=== PATIENT | female | born 1970 | race African-American/Black ===

== ENCOUNTER 2016-10-16 07:58 | Inpatient (IN) ==
[2016-10-16] MEDS ORDERED: ONDANSETRON 4 MG/2 ML VIAL IV STA (08:22)
[2016-10-16] MEDS ORDERED: HYDROmorphone 2 MG/1 ML VIAL IV STA ×2 (08:22→10:39)
[2016-10-16] MEDS ORDERED: HYDROmorphone 2 MG/1 ML VIAL ONE ×2 (08:23→10:39)
[2016-10-16] MEDS ORDERED: ONDANSETRON 4 MG/2 ML VIAL ONE (08:23)
[2016-10-16] MEDS: ALBUTEROL 2.5 MG/3 ML NEB RESP TX SCH ×3 (08:24→08:44)
--- NOTE | 2016-10-16 08:32 | Emergency Department Note ---
Ayana Rene Hilary, am scribing for, and in the presence of, Jose Luis Cabrera MD 08: 24. Deborah Rene James D, MD, personally performed the services described in this documentation, ascribed by Betty Piña in my presence, and it is both accurate and complete [id number] . Arrival - Arrival Chief Complaint: Shortness of Breath ED Nursing Triage Note: Brought in by EMS c/o SOB-onset "about 2 weeks ago", worse today. Also reports increasing abdominal pain, patient has hx of colon ca but has not had chemo in over a year. EMS reports patient initial sats were 70% on RA-improved to 100% on NRB Mode of Arrival: Stretcher Limitations: No Limitations Source: Patient, RN Notes Reviewed Time Seen by Provider: 10/16/16 08:12 - History of Present Illness HPI Narrative: Pt is a 46 y/o female brought into the ED via EMS with c/o intermittent SOB which onset 2 weeks ago. Pt states that she went to Dr. Huerta 4 days ago to get a biopsy of her hip but they were unable to do it due to her O2 levels. She confirms cough with brown spit up, stomach pain, pain in her right leg, nausea and SOB but denies vomiting. Pt has a PMHx of HTN, Peripheral neuropathy, NIDDM , fluid build up of right lung, colon CA, and DVT RUE. She is also a smoker. No other complaints or problems stated in the ED. Onset (ago): week(s) Consistency: intermittent Severity: moderate Severity scale (1-10): 3 Date of Last Menstrual Period: hysterectomy Allergies/Adverse Reactions: Allergies Allergy/AdvReac Type Severity Reaction Status Date / Time Erythromycin Base Allergy Joint Pain Verified 10/13/16 08:25 Home Medications: Home Medications Medication Instructions Recorded Confirmed Type metFORMIN [Glucophage] 1,000 mg PO BID W/MEALS 04/04/15 10/13/16 History amLODIPine [Norvasc] 10 mg PO DAILY #30 tablet 11/19/15 10/13/16 Rx Ondansetron [Ondansetron Odt] 8 mg PO Q4H PRN #10 tab.rapdis 09/24/16 10/13/16 Rx Morphine Sulfate [Morphine Sulfate 30 mg PO BID 10/09/16 10/13/16 History ER] Oxycodone HCl/Acetaminophen 1 each PO Q4-6H PRN 10/09/16 10/13/16 History [Percocet 7.5-325 mg Tablet] Review of System - Review of System 12 point system: reviewed and no additional remarkable complaints except as stated - Review of System Constitutional: Absent: fever Respiratory: Present: cough, respiratory distress (SOB) Gastrointestinal: Present: abdominal pain, nausea. Absent: vomiting Musculoskeletal: Present: leg pain (right) Medical,Surgical,& Family Hx - Medical History Cardio: History of: Hypertension Psychological: No history of: Psychiatric Problems Neurology: History of: Migraine, Peripheral Neuropathy No history of: Seizures HEENT: History of: Dental Problems (DENTURES) Endocrine: History of: Diabetes Mellitus (NIDDM) Respiratory: History of: Respiratory Problems (FLUID BUILD UP R LUNG SOB; FLU VAC-YES; PNEU VAC- NO. DR URRUTIA.) Genitourinary: History of: Kidney Stones, Recurring Urinary Tract Infections No history of: Problems Gastrointestinal: History of: Bowel Obstruction, Gastrointestinal Cancer (colon ca with colostomy), GI Problems (Colon cancer, colostomy placement) Musculoskeletal: History of: Back/Neck Problems (BACK PAIN; DR SEE DALAL PAIN ; BACK INJ LAST 07/2016.), Musculoskeletal Problems (Sacral Lesion) No history of: Musculoskeletal Cancer (10/13/16 Sched for Bx Sacarl Lesion RAD ) Hematology: History of: Clotting Problems (DVT RUE 11.25.14) Reproductive: History of: Ovarian Cysts Other: History of: Cancer (COLON CA 2013 Chemo;09/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)) - Surgical History Cardiac Surgeries: Sugical HX of: Vascular Access Devices (Mediport Lt) Patient Denies: Cardiac Surgery Abdominal Surgeries: Surgical HX of: Abdominal Surgery, Appendectomy, Colonoscopy Reproductive Surgeries: Surgical HX of;: Genitourinary Surgery (Lt Ureteral Stent 08/2016), Hysterectomy, Tubal Ligation - Family History Family History: Reports;: Family Diabetes, Family Heart Disease, Family Hypertension, Family Stroke - Social History Smoking Status: Current every day smoker Frequency of Alcohol Use: None Type of Drug Use: None Exam Physical Examination: GENERAL: This is a well-nourished, well-developed in no apparent distress. VITAL SIGNS: Temperature: 97.9 Pulse: 102 Respiratory: 24 Blood Pressure: 206/88 O2 Sat: 80 HEENT: Head is normocephalic and atraumatic. Pupils are equally round and reactive to light. Extraocular movement are intact. Oropharynx is benign with moist mucous membranes. NECK: Neck is soft and supple without tenderness. There are no masses. There is no lymphadenopathy. LUNGS: Decreased breath sounds in right base. Chest rises symmetrically. There is no chest wall tenderness. CV: Heart is regular rate and rhythm without murmurs, rubs, or gallops. ABDOMEN: Abdomen is soft, non-tender to palpation. There are no abnormal masses palpated. There is no organomegaly. Bowel sounds are present and active. SKIN: Skin is warm and dry. No rash. EXTREMITIES: Patient has full range of motion without tenderness. There is no pedal edema. NEUROLOGIC: Awake, alert, and oriented x4. Cranial nerves II through XII are grossly intact. There are no motorsensory deficits. PSYCHIATRIC: Normal affect. Normal mood. Vital Signs: Vital Signs Temperature 97.9 F 10/16/16 08:05 Pulse Rate 88 10/16/16 09:15 Respiratory Rate 16 10/16/16 09:15 Blood Pressure 186/97 10/16/16 09:15 O2 Sat by Pulse Oximetry 100 10/16/16 09:15 Course - Consultations Consultation #1: Discussed with hospitalist. Patient will be admitted to their service. Time: 09:48 Results - Labs CBC & BMP: 10/16/16 08:17 10/16/16 08:17 Lab Results: I have reviewed the patients labs Labs: Laboratory Tests 10/16/16 08:17 WBC 10.1 RBC 4.31 Hgb 12.5 Hct 37.9 RDW 19.7 H MPV 8.6 L Neut % (Auto) 86.2 H Lymph % (Auto) 8.1 L Neut # (Auto) 8.7 H Lymph # (Auto) 0.8 L Laboratory Tests 10/16/16 10/16/16 10/16/16 08:17 08:17 08:17 INR 1.1 PT Patient/Control Mix 11.4 Circ Anticoag PTT 34.8 Sodium 138 Potassium 4.4 Chloride 109 H Carbon Dioxide 23 BUN 23 H Creatinine 2.40 H Glucose 178 H Alkaline Phosphatase 214 H B-Natriuretic Peptide 609 H Albumin 2.5 L Globulin 4.3 H Albumin/Globulin Ratio 0.5 L - EKG EKG results: interpreted by ERMD - Impressions EKG: Normal sinus rhythm with a short OH interval, rate 99, nonspecific ST-T wave changes, normal axis. - Diagnostic Findings Procedure: Chest x-ray: image reviewed by me, report reviewed by me (Right- sided pneumonia. No significant change in bilateral pleural andparenchymal opacities.) Disposition Clinical Impression: Colon cancer, Dyspnea, History of DVT (deep vein thrombosis), Acute renal failure Case discussed with: patient Disposition: Still a Patient
[2016-10-16] MEDS ORDERED: LEVOFLOXACIN INJ 500 MG in PREMIX 1 EACH IV STA (08:34)
--- NOTE | 2016-10-16 08:34 | XRay Report ---
History is dyspnea Comparison 10/13/2016 The heart is mildly enlarged. There remains moderate diffuse bilateral reticulonodular and hazy pulmonary opacities and underlying effusions which could be infiltrates or edema. The mildly more confluent air bronchograms in both lung bases remain which could be infiltrate or atelectasis. Skinfold overlies the lateral left chest. Impression: No significant change in bilateral pleural and parenchymal opacities described above PROCEDURE INTERPRETED AT [facility] DEPARTMENT OF RADIOLOGY Final Report Signed by: Dr. Mayra Robledo
[2016-10-16 08:37] LABS: Basophils % 0.4 % (0.0-0.8); Eosinophils # 0.1 10*3/uL (0.0-0.87); Eosinophils % 0.7 % (0.00-10.9); Hematocrit 37.9 VOL% (35.7-47.0); Hemoglobin 12.5 GM/DL (12.0-16.0); Immature Granulocytes % 0.6 %; Immature Granulocytes Absolute 0.06 #; Lymphocytes # 0.8 10*3/uL (1.4-4.0); Lymphocytes % 8.1 % (21.3-54.2); Mean Corpuscular Hemoglobin 29 PG (27-34); Mean Corpuscular Volume 87.9 FL (87-102); Mean Platelet Volume 8.6 FL (9.6-12.0); Monocytes # 0.4 10*3/uL (0.11-0.8); NRBC # 0.06 10*3/uL; Neutrophils # 8.7 10*3/uL (1.4-7.4); Neutrophils % 86.2 % (38.7-73.9); Platelet Count 349 T/CUMM (130-400); Red Blood Count 4.31 MC/CUMM (3.8-5.5); Red Cell Distribution Width 19.7 % (9.3-17.3); White Blood Count 10.1 T/CUMM (4-12)
--- NOTE | 2016-10-16 08:39 | EKG Report ---
Stationary ECG Study [facility] ER Test Date: 10/16/2016 8:08:54 AM Pat Name: LUAD NORRIS Department: Room: Gender: F Attendant Honor Bar: : [id number] Requested by: Jose Luis Howard Order Number: [id number] Reading MD: TRENA JOY Intervals [place] Rate: 99 P: 54 PA: 96 QRS: 93 QRSD: 93 T: -14 QT: 354 QTc: 410 Interpretive Statements SINUS RHYTHM WITH SHORT PA INTERVAL RIGHT AXIS DEVIATION NONSPECIFIC T-WAVE ABNORMALITY Electronically Signed On 10-16-16 16:34:22 CDT by TRENA JOY [email or web address]
[2016-10-16 09:02] LABS: INR 1.1; PT Patient Result 11.4 SECS; Partial Thromboplastin Time 34.8 SECS (0-40)
[2016-10-16 09:12] LABS: Albumin 2.5 G/DL (3.4-5.0); Bilirubin,Total 0.4 MG/DL (0.2-1.0); Calcium 9.2 MG/DL (8.5-10.1); Osmolality,Calculated 282.7 MOS/KG (273-304); Potassium 4.4 MMOL/L (3.5-5.1); Total Protein 6.8 G/DL (6.4-8.3)
[2016-10-16] MEDS ORDERED: LEVOFLOXACIN INJ 100 ML IV ONE (09:14)
[2016-10-16] MEDS ORDERED: guaiFENesin/DM ER 600-30 MG TABLET PO PRN (10:17)
[2016-10-16] MEDS ORDERED: ONDANSETRON 4 MG/2 ML VIAL IV PRN (10:17)
[2016-10-16] MEDS ORDERED: POTASSIUM CHLORIDE RIDER 10 MEQ in PREMIX 1 EACH IV PRN (10:19)
[2016-10-16] MEDS ORDERED: MAGNESIUM SULF RIDER 2 GM in PREMIX 1 EACH IV PRN (10:19)
[2016-10-16] MEDS ORDERED: MAGNESIUM SULF RIDER 4 GM in PREMIX 1 EACH IV PRN (10:19)
[2016-10-16] MEDS ORDERED: ALBUTEROL 2.5 MG/3 ML NEB RESP TX PRN (10:20)
[2016-10-16] MEDS ORDERED: GLUCAGON 1 MG VIAL IM PRN (10:22)
[2016-10-16] MEDS ORDERED: DEXTROSE 50% 25 GM/50 ML SYRINGE IV PRN (10:22)
--- NOTE | 2016-10-16 10:42 | Hospitalist History & Physical ---
<Amira Torres - Last Filed: 10/16/16 10:40> Assessment and Plan (1) Acute renal failure Status: Acute Assessment and plan: BUN/Creatinine noted at 23/2.40. Upon review of the medical record on 09/05; BUN and Creatinine was noted at 19/1.10. Due the past history of urology abnormalities; we will obtain CT abdomen and pelvis to rule out obstruction. We will monitor intake and output closely. Recheck CMP in a.m. Current Visit: Yes (2) Dyspnea Status: Acute Assessment and plan: The patient was hypoxic at the time of EMS encounter. Per EMS report, the patient was noted to be hypoxic with O2 saturations recorded at 70%. The patient was placed on a nonrebreather mask and her sats improved and were noted at 100% at the time of ED encounter. Chest x-ray suggested right middle lobe pneumonia. However I feel that there is a component of failure present also. The patient's BNP was noted at 811. We will gently rehydrate and recheck chest x-ray in a.m. Current Visit: Yes Qualifiers: Dyspnea type: unspecified Qualified Code(s): R06.00 - Dyspnea, unspecified (3) Colon cancer Problem details: possible recurrence with tumor markers going up Status: Acute Assessment and plan: The patient is managed in the outpatient setting for her colorectal cancer by Dr. Oconnor; we will consult him to assist. Current Visit: No (4) History of DVT (deep vein thrombosis) Status: Acute Assessment and plan: Patient has a past history of right lower leg DVT. At the time of ED presentation, the patient complained of bilateral lower extremity pain. Upon review of the patient's home medications, no current anticoagulation agents are in place. We will order bilateral venous Doppler studies to evaluate for the presence of deep vein thrombosis. Current Visit: Yes History of Present Illness Chief complaint: Shortness of breath History of present illness: This is a chronically ill 46-year-old female that presented to the ED at [facility] this morning via EMS for the evaluation of shortness of breath. The patient has a medical history significant for hypertension, peripheral neuropathy, deep vein thrombosis to the right upper extremity, rci-iqlligp-obkaqwzvu diabetes, pleural effusion, nicotine addiction , colorectal cancer. The patient has a surgical history significant for Mediport placement to the left chest wall, appendectomy, colonoscopy, cystoscopy with left ureteral stent placement, hysterectomy, and tubal ligation. Patient has a family history significant for diabetes, cardiovascular disease, hypertension, and cerebrovascular accident. The patient denies illicit drug use an alcohol consumption. The patient reported the onset of symptoms 2 weeks prior to presentation. The patient reported that she is followed in the outpatient setting by Dr. Oconnor, oncologist who manages her colorectal cancer. She reported that she was scheduled to have a biopsy of her hip however, due to her low oxygen saturations she was unable to complete it. She reported that she has had a gradual onset of a cough that was initially nonproductive then progressed to productive with thick brown tinged sputum. In addition, the patient reported abdominal pain and right lower lobe pain. She reported nausea and shortness of breath however denied vomiting. Her symptoms became severe prompting her to notify EMS. The patient was subsequently transported to [facility] for further evaluation. The patient was assessed at the time of ED presentation. Per EMS report, at the time of initial encounter the patient was noted to be grossly hypoxic with O2 saturations recorded at 70%. The patient was placed on a nonrebreather mask in route and at the time of presentation the patient oxygen saturations were noted at 100%. The patient was noted to be hypertensive with a blood pressure recorded at 186/97. Labs were obtained which were remarkable for chloride 109, BUN 23, creatinine 2.40, glucose 178, alkaline phosphatase 214, BNP 609, and albumin 2.5. Chest x-ray reported mild heart enlargement and bilateral reticularnodular and hazy pulmonary opacities and underlying effusions which could be attributed to infiltrates or edema. The mildly more confluent air bronchograms in both lungs remain which could be infiltrate or atelectasis. After brief discussion with both and Dr. Peña, the patient will be admitted to the hospitalist service for continuation of care. Due to the severity of the patient's current pulmonary status, a pulmonology consultation will be requested to evaluate and assist during the clinical encounter. The patient is generally managed in the outpatient setting by Dr. Oconnor, we will consult Dr. Oconnor to assist in the management of the patient during the clinical encounter. Home medications have been reviewed and reconciled. CODE STATUS discussed; patient is a FULL CODE. Home Medications Medication Instructions Recorded Confirmed Type metFORMIN [Glucophage] 1,000 mg PO BID W/MEALS 04/04/15 10/16/16 History amLODIPine [Norvasc] 10 mg PO DAILY #30 tablet 11/19/15 10/16/16 Rx Ondansetron [Ondansetron Odt] 8 mg PO Q4H PRN #10 tab.rapdis 09/24/16 10/16/16 Rx Morphine Sulfate [Morphine Sulfate 30 mg PO BID 10/09/16 10/16/16 History ER] Oxycodone HCl/Acetaminophen 1 each PO Q4-6H PRN 10/09/16 10/16/16 History [Percocet 7.5-325 mg Tablet] Nicotine [Nicotine 21 mg/24 Hr 1 patch TRANSDERM DAILY 10/16/16 10/16/16 History Patch] Allergies Allergy/AdvReac Type Severity Reaction Status Date / Time Erythromycin Base Allergy Joint Pain Verified 10/13/16 08:25 Medical,Surgical,& Family Hx - Medical History Cardio: History of: Hypertension Psychological: No history of: Psychiatric Problems Neurology: History of: Migraine, Peripheral Neuropathy No history of: Seizures HEENT: History of: Dental Problems (DENTURES) Endocrine: History of: Diabetes Mellitus (NIDDM) Respiratory: History of: Respiratory Problems (FLUID BUILD UP R LUNG SOB; FLU VAC-YES; PNEU VAC- NO. DR URRUTIA.) Genitourinary: History of: Kidney Stones, Recurring Urinary Tract Infections No history of: Problems Gastrointestinal: History of: Bowel Obstruction, Gastrointestinal Cancer (colon ca with colostomy), GI Problems (Colon cancer, colostomy placement) Musculoskeletal: History of: Back/Neck Problems (BACK PAIN; DR SEE DALAL PAIN ; BACK INJ LAST 07/2016.), Musculoskeletal Problems (Sacral Lesion) No history of: Musculoskeletal Cancer (10/13/16 Sched for Bx Sacarl Lesion RAD ) Hematology: History of: Clotting Problems (DVT RUE 11.25.14) Reproductive: History of: Ovarian Cysts Other: History of: Cancer (COLON CA 2013 Chemo;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 DR JUAREZ.) Abdominal Surgeries: Surgical HX of: Abdominal Surgery, Appendectomy, Colonoscopy Reproductive Surgeries: Surgical HX of;: Genitourinary Surgery (Lt Ureteral Stent 08/2016), Hysterectomy, Tubal Ligation - Family History Family History: Reports;: Family Diabetes, Family Heart Disease, Family Hypertension, Family Stroke Additional Family History: No additional family history reported at the time of ED encounter. - Social History Smoking Status: Current every day smoker Have you smoked in the last 12 months: Yes Time spent discussing smoking cessation with patient: 3 to 10 minutes (Treatment ) Frequency of Alcohol Use: None Type of Drug Use: None Marital Status: Single Lives With:: Significant Other Functional capacity: independent ambulation 12 point system: reviewed and no additional remarkable complaints except as stated - Constitutional Constitutional: Present: chills, daytime sleepiness Exam - Constitutional Vitals: Period Temp Pulse Resp BP Sys/Bertrand Pulse Ox Last 24 Hr 97.9 F-97.9 F 88-102 16-24 185-206/88-110 80-100 General appearance: normal weight, mild distress - Head Head exam: Present: normal inspection, normocephalic, atraumatic - Eye Eye exam: Present: EOMI. Absent: conjunctival injection, nystagmus Pupils: Present: HOLLIE, normal accommodation - ENT ENT exam: Present: normal exam, normal external ear exam, normal oropharynx - Neck Neck exam: Present: normal inspection. Absent: lymphadenopathy, meningismus, thyromegaly - Respiratory Respiratory exam: Present: decreased breath sounds (Right lung base). Absent: rales, rhonchi, stridor - Cardiovascular Cardiovascular exam: Present: regular rate and rhythm, other (Mediport noted to left upper chest wall). Absent: carotid bruit, diastolic murmur, gallop, JVD, rubs - GI/Abdominal GI/Abdominal exam: Present: normal bowel sounds, soft - Extremities Exam Extremities exam: Present: normal inspection, normal capillary refill, full ROM. Absent: edema - Back Exam Back exam: Present: normal inspection - Neurological Exam Neurological exam: Present: alert, oriented X3 - Psychiatric Psychiatric exam: Present: normal affect, normal mood - Skin Skin exam: Present: normal color, warm, dry Results - Labs CBC & BMP: 10/16/16 08:17 10/16/16 08:17 Lab Results: I have reviewed the past 24 hour labs <Jens Peña - Last Filed: 10/16/16 15:18> Assessment and Plan (1) Colon cancer Status: Acute Assessment and plan: Impression: 1. Colon cancer 2. Left-sided pleural effusion, etiology not known 3. Bilateral hydronephrosis, status post stenting of the left side Plan: Thoracentesis. Urology consult. Oncology consult. Dyspnea should improve once the pleural effusion has been drained. This note was completed using [employer] voice recognition software. There may be court interpreter errors as a result. Current Visit: Yes History of Present Illness History of present illness: Ms. Burnham is a 46 year old female The patient has a known diagnosis of colon cancer. It is apparently metastatic. She started having some dyspnea about 2-3 weeks ago. She has some vague chest discomfort. She says that the dyspnea is episodic, and she had a severe episode on the day of admission. She reports a prior history of pleural effusions, and has undergone thoracentesis in the past. She reports that the pleural fluid was apparently not malignant, but she was not told etiology. Recently, she had a left ureteral stent placed for what appears to be hydronephrosis of the left kidney. CT of the abdomen and pelvis showed right-sided hydronephrosis and left-sided pleural effusion with infiltrate. Exam - Constitutional Vitals: Period Temp Pulse Resp BP Sys/Bertrand Pulse Ox Last 24 Hr 97.1 F-97.9 F 84-106 16-24 176-206/86-110 80-100 Examination is notable for scattered rales throughout the chest with decreased breath sounds in the left lung. Heart is regular with distant tones. I do not hear a murmur. She is awake and alert Results - Labs CBC & BMP: 10/16/16 08:17 10/16/16 08:17
[2016-10-16] MEDS: FUROSEMIDE 40 MG/4 ML VIAL IV SCH (10:52)
[2016-10-16 10:56] LABS: Apearance,Urine CLEAR (Clear); Bacteria,Urine Occasional /HPF (Few); Bilirubin,Urine Negative (Negative); Blood, Urine Small mg/dL (Negative); Glucose,Urine (UA) Negative (Negative); Hyaline Casts,Urine 1 /LPF (0-3); Ketones,Urine Negative (Negative); Mucus,Urine Occasional /LPF (Occasional); Nitrite,Urine Negative (Negative); Protein,Urine 100 MG/DL; RBC,Urine 5 /HPF (0-4); Urine Color Straw (Yellow); Urine Specific Gravity 1.005 (1.001-1.035); Urine Urobilinogen < 2.0 EU/DL (0.2-1.0); WBC,Urine 4 /HPF (0-6)
--- NOTE | 2016-10-16 12:30 | CT Report ---
CT abdomen pelvis wo con Indication: Abdominal pain. CT ABDOMEN AND PELVIS WITHOUT CONTRAST DLP: 233 mGy*cm. One or more of the following dose reduction techniques was used: Automated exposure control, adjustment of the mA and/or kV according the patient size, or use of iterative reconstruction techniques. Comparison: 08/27/2016. Technique: Axial noncontrast CT images of the abdomen and pelvis were obtained. Abdomen: Moderate left pleural effusion has developed. Fluid is now present within the right minor fissure. Bibasilar infiltrates are present with increased reticular nodular opacification of both lungs, especially on the right. Heart is upper limits normal in size. Unenhanced liver and spleen are both slightly enlarged. Gallbladder is unremarkable. Loss of definition of tissue planes throughout the upper abdomen noted and lack of IV contrast limits evaluation. As best can be seen, the pancreas appears unremarkable. Neither adrenal gland reliably identified. Severe right hydronephrosis has developed, previously not dilated. A left ureter double-J stent is again noted with continued left hydronephrosis. Double-J stent extends to the bladder which is decompressed with a Olmstead catheter. Calcified atheromatous disease of the abdominal aorta and iliac arteries is significant for patient age. A epigastric colostomy noted. No small bowel dilatation. Pelvis: Decompressed urinary bladder with Olmstead catheter. Delineation of tissue planes in the pelvis is obscured by lack of IV and oral contrast, as well as mild fat edema. Left ureter is decompressed where as the right ureter is markedly dilated to the bladder. Uterus not identified. No pelvic free fluid shown. Impression: 1. Diagnostic sensitivity severely limited by lack of IV and oral contrast, as well as anasarca. 2. New onset severe right hydronephrosis and hydroureter. Left urinary collecting system remains dilated as well but there is a left double-J ureter stent present. Urinary bladder is decompressed with a Olmstead catheter. 3. Moderate left pleural effusion is new. Small amount of fluid now present within the right minor fissure as well. Bibasilar pneumonia with increased reticular nodular opacification of both lungs, especially on the right. Given history, pulmonary edema versus lymphangitic carcinomatosis is of concern. PROCEDURE INTERPRETED AT [facility] DEPARTMENT OF RADIOLOGY Final Report Signed by: Kong Infante M.D.
--- NOTE | 2016-10-16 12:35 | Ultrasound Report ---
History: Bilateral lower extremity pain and edema Date: 10/16/2016 Study: Bilateral lower extremity color-flow venous Doppler study Comparison exam: November 12, 2015 venous ultrasound Color Doppler, wave form analysis, and compression analysis of the deep veins of both lower extremities from the common femoral vein level through the popliteal vein level shows that the veins are readily compressible. There is no abnormal intraluminal material to suggest thrombus. Waveform analysis is unremarkable. Ultrasound images were captured and archived Impression: Normal bilateral lower extremity color flow venous Doppler study. No evidence of acute DVT PROCEDURE INTERPRETED AT [facility] DEPARTMENT OF RADIOLOGY Final Report Signed by: Dr. Rebecca Sumner
[2016-10-16] MEDS: MORPHINE 2 MG/1 ML SYRINGE IV PRN ×2 (12:49→17:46)
[2016-10-16] MEDS: cefTRIAXone 1,000 MG in SODIUM CHLORIDE 0.9% 100 ML IV SCH (12:51)
[2016-10-16] MEDS: ENOXAPARIN 40 MG/0.4 ML SYRINGE SUBCUT SCH (12:52)
[2016-10-16] MEDS: INSULIN REGULAR 100 UNIT/ML SUBCUT SCH ×3 (12:55→20:44)
[2016-10-16] MEDS: ALBUTEROL/IPRATROPIUM 3 ML NEB RESP TX SCH ×2 (14:00→20:26)
[2016-10-16] MEDS ORDERED: POLYETHYLENE GLYCOL POWDER 17 GM PACK PO PRN (14:14)
[2016-10-16] MEDS: MORPHINE ER 30 MG TABLET PO SCH (20:43)
[2016-10-17] MEDS: ALBUTEROL/IPRATROPIUM 3 ML NEB RESP TX SCH ×4 (00:57→19:34)
[2016-10-17] MEDS ORDERED: HEPARIN LOCK FLUSH 500 UNIT/5 ML SYRINGE IV ONE (04:00)
[2016-10-17 04:58] LABS: Basophils # 0.1 10*3/uL (0.0-0.2); Basophils % 0.4 % (0.0-0.8); Eosinophils # 0.4 10*3/uL (0.0-0.87); Eosinophils % 2.3 % (0.00-10.9); Hematocrit 24.8 VOL% (35.7-47.0); Hemoglobin 7.9 GM/DL (12.0-16.0); Immature Granulocytes % 0.6 %; Lymphocytes # 1.7 10*3/uL (1.4-4.0); Lymphocytes % 10.4 % (21.3-54.2); Mean Corpuscular HGB Conc 31.9 GM/DL (32-36); Mean Corpuscular Hemoglobin 29 PG (27-34); Mean Corpuscular Volume 90.2 FL (87-102); Mean Platelet Volume 8.4 FL (9.6-12.0); Monocytes # 1.1 10*3/uL (0.11-0.8); Monocytes % 6.6 % (1.7-12.7); NRBC # 0.02 10*3/uL; Neutrophils # 13.2 10*3/uL (1.4-7.4); Neutrophils % 79.7 % (38.7-73.9); Platelet Count 483 T/CUMM (130-400); Red Blood Count 2.75 MC/CUMM (3.8-5.5); Red Cell Distribution Width 18.8 % (9.3-17.3); White Blood Count 16.6 T/CUMM (4-12)
[2016-10-17 05:31] LABS: Albumin 2.2 G/DL (3.4-5.0); Bilirubin,Total 0.6 MG/DL (0.2-1.0); Calcium 8.7 MG/DL (8.5-10.1); Magnesium 1.7 MG/DL (1.8-2.4); Osmolality,Calculated 284.3 MOS/KG (273-304); Potassium 4.4 MMOL/L (3.5-5.1); Risk Ratio 3.28; VLDL CHOLESTEROL 19.6 MG/DL
--- NOTE | 2016-10-17 07:35 | XRay Report ---
History short of breath Comparison 10/16/2016 The heart is enlarged. A MediPort catheter on the left again seen with the prominent the flattening of the catheter near the entry site under the left clavicle There is been mild worsening of moderate to severe diffuse bilateral hazy pulmonary opacities and underlying effusions. Impression: 1. Worsening of pulmonary edema and underlying effusions 2. Narrowing of MediPort catheter near the entry site again demonstrated PROCEDURE INTERPRETED AT [facility] DEPARTMENT OF RADIOLOGY Final Report Signed by: Dr. Mayra Robledo
--- NOTE | 2016-10-17 07:58 | Urology Consultation ---
History of Present Illness - Data of Consult Consult date: 10/17/16 - Consult Narrative History of present illness: Ms. Burnham is a 46 year old female The patient is known to me. This 46-year-old black female has a history of colon cancer and was seen last month with left hydronephrosis. We were unable to place a left ureteral stent in a retrograde fashion but the interventional radiologist was able to place it antegrade. She is admitted now with deterioration of her renal function and a CT scan shows that she is developed hydronephrosis on the right side. I am going to again recommend an attempted placement of a right ureteral stent retrograde and if this is not possible then take her to interventional radiology for nephrostomy or antegrade stent placement on the right. I can do this today if okay medically if not we can delay this until next week CC: Jens Peña MD - Home Medications and Allergies Home Medications: Home Medications Medication Instructions Recorded Confirmed Type metFORMIN [Glucophage] 1,000 mg PO BID W/MEALS 04/04/15 10/16/16 History amLODIPine [Norvasc] 10 mg PO DAILY #30 tablet 11/19/15 10/16/16 Rx Ondansetron [Ondansetron Odt] 8 mg PO Q4H PRN #10 tab.rapdis 09/24/16 10/16/16 Rx Morphine Sulfate [Morphine Sulfate 30 mg PO BID 10/09/16 10/16/16 History ER] Oxycodone HCl/Acetaminophen 1 each PO Q4-6H PRN 10/09/16 10/16/16 History [Percocet 7.5-325 mg Tablet] Nicotine [Nicotine 21 mg/24 Hr 1 patch TRANSDERM DAILY 10/16/16 10/16/16 History Patch] Allergies/Adverse Reactions: Allergies Allergy/AdvReac Type Severity Reaction Status Date / Time Erythromycin Base Allergy Joint Pain Verified 10/13/16 08:25 Exam - Constitutional Vitals: Period Temp Pulse Resp BP Sys/Bertrand Pulse Ox Last 24 Hr 96.2 F-98.1 F 81-106 16-24 158-206/74-110 80-100 Results - Labs CBC & BMP: 10/17/16 04:35 10/17/16 04:35
--- NOTE | 2016-10-17 08:13 | Hospitalist Progress Note ---
Assessment and Plan (1) Colon cancer Status: Acute Assessment and plan: Impression: 1. Colon cancer 2. Left-sided pleural effusion 3. Bilateral hydronephrosis, status post stenting of the left side Plan: Thoracentesis will be performed today. She can undergo the urologic procedure following thoracentesis. Appreciate urology assistance. This note was completed using [employer] voice recognition software. There may be shift boss errors as a result. Current Visit: Yes Hospitalist: Subjective Interval history: Follow-up colon cancer, pleural effusion, and hydronephrosis. The patient will apparently receive thoracentesis today. Dyspnea is unchanged, and she remains oxygen dependent. Urology has seen the patient. I think it will be safe to proceed with cystoscopy and an attempt at decompressing the right kidney following thoracentesis. The patient is agreeable to having both procedures performed today. Exam - Constitutional Vitals: Period Temp Pulse Resp BP Sys/Bertrand Pulse Ox Last 24 Hr 96.2 F-98.1 F 81-106 16-24 158-196/74-110 90-100 Vital signs are noted above. Heart is regular with a soft systolic murmur. She has decreased breath sounds in the left chest shelter up. She is awake and alert. Results - Labs CBC & BMP: 10/17/16 04:35 10/17/16 04:35 Lab Results: I have reviewed the past 24 hour labs (Creatinine was 1.4 about 6 weeks ago.)
[2016-10-17] MEDS: INSULIN REGULAR 100 UNIT/ML SUBCUT SCH ×4 (08:45→20:42)
[2016-10-17] MEDS: PANTOPRAZOLE 40 MG TABLET PO SCH (08:46)
[2016-10-17] MEDS: MORPHINE ER 30 MG TABLET PO SCH ×3 (08:46→22:05)
[2016-10-17] MEDS: amLODIPine 10 MG TABLET PO SCH (08:46)
[2016-10-17] MEDS: FUROSEMIDE 40 MG/4 ML VIAL IV SCH (08:47)
--- NOTE | 2016-10-17 08:57 | Oncology Consult Note ---
Assessment and Plan - Time spent with patient Time spent with patient: Greater than 30 minutes (1) Colon cancer Problem details: possible recurrence with tumor markers going up Status: Acute Assessment and plan: I am very concerned that all of her recent medical issues of the last 2-3 months are related to recurrence of her colon cancer even though I do not have obvious definitive proof. We are so convinced that she has recurrence we are planning to begin her back on chemotherapy. I told her this morning it she is in no condition at this point to handle chemotherapy with her renal failure and her pulmonary issues. We will see if we can improve these over the next few days and consider starting chemotherapy next week. Her prognosis is exceedingly poor but given her young age we are doing everything we can. I will continue to follow her with you. I agree with stent placement of the right ureter and also thoracentesis of the left pleural effusion. Please send the pleural fluid for cytology. Current Visit: No (2) Pleural effusion, left Status: Acute Current Visit: Yes (3) Dyspnea Status: Acute Current Visit: No Qualifiers: Dyspnea type: shortness of breath Qualified Code(s): R06.02 - Shortness of breath (4) Hydronephrosis due to obstruction of ureter Problem details: proximal ureteral obstruction on intraop retrograde uretrogram Status: Acute Current Visit: No (5) Sacral lesion Problem details: PET +ve - seen on August Status: Acute Current Visit: No (6) Acute renal failure Status: Acute Current Visit: Yes History of Present Illness History of present illness: Ms. Burnham is a 46 year old female with a history of stage III colon cancer with numerous lymph node involvement and high risk features dating back to 2013. At that time we did adjuvant chemotherapy. I was certain that she was going to relapse shortly after completing chemotherapy but she surprisingly did not have any definitive evidence of disease for the last couple years. She did have recurrent right-sided pleural effusion that was drained on 3 separate occasions and each time return back as benign cytology. She underwent a pleurodesis for this approximately 1 year ago. Over the last few months her abdominal pain has significantly worsened and she developed left-sided hydronephrosis. This was stented in a retrograde fashion by interventional radiology 1 month ago. She also has developed thickening and activity in the right pleural spaces on PET scan but this could easily be secondary to her pleurodesis. There was an area of activity on the PET scan noted in her lower spine that we attempted a biopsy but she was unable to tolerate the biopsy due to hypoxia. Her CEA level in clinic was elevated beyond her normal baseline elevation last month. I told her that I am fairly certain she has relapse of disease but I am not able to produce with biopsy. Given her young age and high clinical suspicion for relapse, we had her arrange to have a Mediport placed that we can begin chemotherapy. The last few weeks have been very complicated for her. She has declined fairly rapidly with 3 separate admissions. She required admission after Mediport placed at [facility] due to hypoxia. She presented to the ER yesterday with shortness of breath and abdominal pain as well. She was found to have new right-sided hydronephrosis. Urology is evaluating her for possible stent placement. Her chest x-ray shows a new left- sided pleural effusion. The plan at this point is to try to place a stent in the right ureter and also do a left thoracentesis. Hopefully the fluid from the thoracentesis will be sent for cytology. I told her that we will likely begin chemotherapy in the near future due to my high suspicion for recurrence and no better explanation for her most recent decline in functional status. Her CT scan yesterday again did not show any obvious tumor growth within her abdominal cavity but this would be difficult to ascertain given her numerous surgeries in her abdomen and likely significant scar tissue. CT was done without IV contrast due to her elevated creatinine. Home Medications Medication Instructions Recorded Confirmed Type metFORMIN [Glucophage] 1,000 mg PO BID W/MEALS 04/04/15 10/16/16 History amLODIPine [Norvasc] 10 mg PO DAILY #30 tablet 11/19/15 10/16/16 Rx Ondansetron [Ondansetron Odt] 8 mg PO Q4H PRN #10 tab.rapdis 09/24/16 10/16/16 Rx Morphine Sulfate [Morphine Sulfate 30 mg PO BID 10/09/16 10/16/16 History ER] Oxycodone HCl/Acetaminophen 1 each PO Q4-6H PRN 10/09/16 10/16/16 History [Percocet 7.5-325 mg Tablet] Nicotine [Nicotine 21 mg/24 Hr 1 patch TRANSDERM DAILY 10/16/16 10/16/16 History Patch] Allergies Allergy/AdvReac Type Severity Reaction Status Date / Time Erythromycin Base Allergy Joint Pain Verified 10/13/16 08:25 Medical,Surgical,& Family Hx - Medical History Cardio: History of: Hypertension Psychological: No history of: Psychiatric Problems Neurology: History of: Migraine, Peripheral Neuropathy No history of: Seizures HEENT: History of: Dental Problems (DENTURES) Endocrine: History of: Diabetes Mellitus (NIDDM) Respiratory: History of: Respiratory Problems (FLUID BUILD UP R LUNG SOB; FLU VAC-YES; PNEU VAC- NO. DR URRUTIA.) Genitourinary: History of: Kidney Stones, Recurring Urinary Tract Infections No history of: Problems Gastrointestinal: History of: Bowel Obstruction, Gastrointestinal Cancer (colon ca with colostomy), GI Problems (Colon cancer, colostomy placement) Musculoskeletal: History of: Back/Neck Problems (BACK PAIN; DR SEE DALAL PAIN ; BACK INJ LAST 07/2016.), Musculoskeletal Problems (Sacral Lesion) No history of: Musculoskeletal Cancer (10/13/16 Sched for Bx Sacarl Lesion RAD ) Hematology: History of: Clotting Problems (DVT RUE 11.25.14) Reproductive: History of: Ovarian Cysts Other: History of: Cancer (COLON CA 2013 Chemo;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 DR JUAREZ.) Abdominal Surgeries: Surgical HX of: Abdominal Surgery, Appendectomy, Colonoscopy Reproductive Surgeries: Surgical HX of;: Genitourinary Surgery (Lt Ureteral Stent 08/2016), Hysterectomy, Tubal Ligation - Family History Family History: Reports;: Family Diabetes, Family Heart Disease, Family Hypertension, Family Stroke - Social History Smoking Status: Current every day smoker Frequency of Alcohol Use: None Type of Drug Use: None 12 point system: reviewed and no additional remarkable complaints except as stated - Constitutional Constitutional: Present: fatigue. Absent: chills, fever(s) - Respiratory Respiratory: Present: cough, dyspnea. Absent: hemoptysis - Gastrointestinal Gastrointestinal: Present: abdominal pain - Psychiatric Psychiatric General: Present: anxiety Exam - Constitutional Vitals: Period Temp Pulse Resp BP Sys/Bertrand Pulse Ox Last 24 Hr 96.2 F-98.1 F 81-106 16-24 158-196/74-97 90-100 General appearance: normal weight, no acute distress - Head Head Exam: Present: normocephalic, atraumatic - Eye Eye Exam: Present: EOMI Pupils: Present: PERRL - ENT ENT exam: Present: normal exam, normal oropharynx - Neck Neck exam: Absent: lymphadenopathy, thyromegaly - Respiratory Respiratory exam: Absent: accessory muscle use, chest wall tenderness - Cardiovascular Cardiovascular exam: Present: RRR. Absent: irregular rhythm, systolic murmur - GI/Abdominal GI/Abdominal exam: Present: soft. Absent: ascites, distended, firm, mass - Neurological Exam Neurological exam: Present: alert, oriented X3 - Psychiatric Psychiatric exam: Present: normal affect, normal mood - Skin Skin exam: Present: warm, dry Results - Labs CBC & BMP: 10/17/16 04:35 10/17/16 04:35 Lab Results: I have reviewed the past 24 hour labs - Diagnostic Findings Procedure: Chest x-ray: report reviewed by me, image reviewed by me, CT Abdomen and Pelvis: report reviewed by me
[2016-10-17] MEDS ORDERED: fentaNYL 100 MCG/2 ML VIAL IV ONE (09:01)
[2016-10-17] MEDS ORDERED: DIAZEPAM 5 MG TABLET PO ONE (09:01)
[2016-10-17] MEDS ORDERED: MIDAZOLAM 2 MG/2 ML VIAL IV ONE (09:01)
--- NOTE | 2016-10-17 09:04 | IR History and Physical Update ---
IR Pre-Procedure - History and Physical H&P was reviewed, the patient examined and there: are no changes in the patients condition since last H&P was completed. Reason for procedure:: 46-year-old female with colon cancer and pleural effusion. Needs thoracentesis , but also has new obstruction of the right urinary collecting system. Asked by Dr. Ramirez to place right percutaneous nephrostomy and, if possible, internal stent of the right ureter. - Dictation Physical: refer to H&P completed by admitting physician - Physical Exam Vital Signs: Last Vital Signs Temp 97.2 F L 10/17/16 07:44 Pulse 83 10/17/16 07:47 Resp 18 10/17/16 07:47 BP 189/86 10/17/16 07:44 Pulse Ox 95 10/17/16 07:47 Mental Status: alert and oriented - Sedation IR anesthesia plan for sedation: minimal ASA Class: III - Risks Risks: Procedures explained. Risks discussed include, but not limited to, the following:[Pain, bleeding, infection, permanent percutaneous nephrostomy] All questions answered. The following alternatives were discussed:[None] Risks and benefits discussed with: patient Consent obtained from: patient Assessment and Plan - Time spent with patient Time spent with patient: Less than 30 minutes
[2016-10-17] MEDS ORDERED: MIDAZOLAM 2 MG/2 ML VIAL ONE (10:08)
[2016-10-17] MEDS ORDERED: fentaNYL 100 MCG/2 ML VIAL ONE (10:08)
--- NOTE | 2016-10-17 10:55 | Post Interventional Procedure ---
Pre-op diagnosis: Colon ca, left pleural effusion, right hydronephrosis Post-op diagnosis: same Procedure: 1. Left thoracentesis, 1200 cc straw colored fluid 2. Right perc nephrostomy, 10-Fr drain. Contrast: Omni 350, 20 cc Flouroscopy: 3.3 min Radiologist: Kong Infante Anesthesia: conscious sedation Medications: Versed 1mg, fentanyl 50 mcg Total Sedation Time: 33 min Specimens: other (1200 cc left pleural fluid) Estimated blood loss: none Complications: none Condition: stable Description/Findings: 1. Uncomplicated thora. 2. Unable to cannulate right ureter into the pelvis b/c obstructed and dilated. Placed 10-Fr perc neph to decompress over the weekend. Will need a followup antegrade nephrostogram next week with another attempt to cannulate the ureter into the pelvis and place ureter stent. Assessment and Plan - Time spent with patient Time spent with patient: Greater than 30 minutes
[2016-10-17 11:36] LABS: Lymphocytes,Pleural Fluid 76 %; Monocytes,Pleural Fluid 6 %; Neutrophils,Pleural Fluid 18 %; RBC,Pleural Fluid 524 T/CUMM
[2016-10-17] MEDS: SODIUM CHLORIDE 0.45% 1,000 ML IV SCH (12:21)
--- NOTE | 2016-10-17 12:38 | Ultrasound Report ---
US thoracentesis Indication: Colon cancer. Left pleural effusion. ULTRASOUND-GUIDED THORACENTESIS Description: A formal timeout was performed. Maximum sterile barrier technique was used. A left pleural effusion was identified with ultrasound. The left back was prepped and draped in sterile fashion. Under sonographic guidance, a 6 [place] pigtail catheter was advanced into the effusion using trocar technique. A captured sonographic image documents needle position. The needle was removed. Through the catheter, we obtained a total of 1200 cc of straw-colored, clear fluid. The catheter was removed. A bandage was placed at the puncture site. The patient tolerated the procedure well. Chest radiograph is pending. Specimen: 1200 cc pleural fluid to the laboratory. Impression: Ultrasound-guided thoracentesis. PROCEDURE INTERPRETED AT [facility] DEPARTMENT OF RADIOLOGY Final Report Signed by: Kong Infante M.D.
[2016-10-17] MEDS: cefTRIAXone 1,000 MG in SODIUM CHLORIDE 0.9% 100 ML IV SCH (12:39)
[2016-10-17] MEDS: ENOXAPARIN 40 MG/0.4 ML SYRINGE SUBCUT SCH (12:39)
--- NOTE | 2016-10-17 12:42 | Interventional Radiology Rpt ---
IR nephrostomy perc RT Indication: Colon cancer. Obstructed distal ureters. New developed right hydronephrosis. Percutaneous nephrostomy, right side Description: A formal timeout was performed. Patient placed prone on the fluoroscopy table. Maximum sterile barrier technique instituted. Ultrasound evaluation shows the right kidney to be dilated. Under sonographic guidance, an AccuStick needle was advanced directly into the dilated renal collecting system, midpole. Captured sonographic image documents needle position. Needle was exchanged over a wire for a AccuStick sheath. Antegrade nephroureterogram was performed. Extensive effort was then made with a Glidewire and Kum[place] catheter to advance into the mid and distal ureter, unsuccessfully. There appears to be occlusion of the ureter at pelvic inlet. Additionally, the dilated collecting system results in redundancy of the proximal ureter which may limit access options at this time. Therefore, over a Glidewire, a 10 [place] nephrostomy catheter was advanced. The Glidewire was removed and the pigtail formed in the renal pelvis. Position was confirmed with a captured fluoroscopic image during contrast injection. The catheter was anchored with a StatLock device and connected to a gravity bag. Patient tolerated the procedure well. Conscious sedation: Under physician supervision, Versed 1 mg, fentanyl 50 mcg were administered intravenously for conscious sedation. Vital signs, including pulse oximetry, heart rate and blood pressure, continuously monitored by nursing present in the room. Physicians spent 33 minutes [id number] sedation time with the patient. Contrast: Omnipaque 350, 20 cc. Fluoroscopy: 3.3 minutes, 6 captured images. Impression: 1. Antegrade nephroureterogram shows occlusion of the mid ureter at pelvic inlet. Unable to cannulate with a wire at this time. A portion of this is corticated by marked redundancy of the proximal ureter due to severe hydronephrosis and hydroureter. Recommend repeat attempt at canalizing the ureter next week after decompression of the urinary collecting system. 2. Placement of right-sided 10 [place] pigtail nephrostomy catheter as described. PROCEDURE INTERPRETED AT [facility] DEPARTMENT OF RADIOLOGY Final Report Signed by: Kong Infante M.D.
--- NOTE | 2016-10-17 12:43 | XRay Report ---
XR chest post procedure Indication: Thoracentesis. Post procedure chest radiograph, 2 views: Inspiratory and expiratory views of the chest were obtained. Since earlier today, the left pleural effusion has almost completely been removed. No pneumothorax shown. Pulmonary nodule just deep of the Mediport catheter access site noted. Right pleural fluid, and hazy obscuration of the right midlung and lung base are stable. Impression: Left thoracentesis without pneumothorax. PROCEDURE INTERPRETED AT [facility] DEPARTMENT OF RADIOLOGY Final Report Signed by: Kong Infante M.D.
[2016-10-17] MEDS: oxyCODONE/ACETAMINOPHEN 5-325 MG TABLET PO PRN (18:34)
[2016-10-18] MEDS: ALBUTEROL/IPRATROPIUM 3 ML NEB RESP TX SCH ×4 (01:28→19:41)
--- NOTE | 2016-10-18 09:05 | Urology Progress Note ---
Urology - PN: Subj Interval history: The patient now has a right nephrostomy tube. Dr. Infante was unable to get a ureteral stent in an antegrade direction and this was a same problem we had on the left side with significant ureteral obstruction. Nephrostomy tube will protect her renal function on the right and we can try a repeat attempt later to get a ureteral stent in. I will remove her Olmstead catheter today Exam - Constitutional Vitals: Period Temp Pulse Resp BP Sys/Bertrand Pulse Ox Last 24 Hr 97.3 F-98.2 F 79-105 16-20 123-182/58-103 76-100 Results - Labs CBC & BMP: 10/17/16 04:35 10/17/16 04:35
[2016-10-18] MEDS: MORPHINE ER 30 MG TABLET PO SCH ×2 (09:37→20:08)
[2016-10-18] MEDS: PANTOPRAZOLE 40 MG TABLET PO SCH (09:39)
[2016-10-18] MEDS: amLODIPine 10 MG TABLET PO SCH (09:39)
[2016-10-18] MEDS: INSULIN REGULAR 100 UNIT/ML SUBCUT SCH ×4 (09:40→22:23)
[2016-10-18] MEDS: FUROSEMIDE 40 MG/4 ML VIAL IV SCH (09:42)
[2016-10-18] MEDS: cefTRIAXone 1,000 MG in SODIUM CHLORIDE 0.9% 100 ML IV SCH ×2 (09:48→17:44)
[2016-10-18] MEDS: ENOXAPARIN 40 MG/0.4 ML SYRINGE SUBCUT SCH (09:48)
[2016-10-18] MEDS: SODIUM CHLORIDE 0.45% 1,000 ML IV SCH (09:49)
--- NOTE | 2016-10-18 16:35 | Hospitalist Progress Note ---
Hospitalist: Subjective Interval history: 46-year-old -Filipino female with recurrence of colon cancer bilateral hydronephrosis and renal failure. She is status post right nephrostomy tube by urology as they were unable to get a ureteral stent in an antegrade direction. He is otherwise comfortable Exam - Constitutional Vitals: Period Temp Pulse Resp BP Sys/Bertrand Pulse Ox Last 24 Hr 97.4 F-98.7 F 79-100 16-20 123-154/58-73 76-99 Exam: General: No Acute Distress HEENT: Normocephalic, atraumatic, Extra ocular movements intact Neck: Supple, No JVD Chest: Clear to auscultation B/L CV: S1 + S2 audible without murmur, gallop or rub Abd: soft, NT, Non-distended, BS + Ext: No edema Skin: No purpura, bruising or rash Rheumatologic: No Joint deformities Neurologic: Strength 5/5 all extremities, no gross sensory deficits Results - Labs CBC & BMP: 10/17/16 04:35 10/17/16 04:35 - Impressions Assessment and plan: Colon cancer Status: Acute Assessment and plan: She appears to have recurrent disease, per oncology her CEA level was increased at last clinic visit Current Visit: Yes Bilateral hydronephrosis and hydroureter Status: Acute Assessment and plan: This appears to be due to involvement of ureters what I suspect colon cancer. She is status post right percutaneous nephrostomy by IR. Current Visit: Yes Acute renal failure, obstructive Status: Acute Current Visit: Yes Assessment and plan: Creatinine likely to go down after nephrostomy placement, monitoring metabolic profile Bacterial pneumonia Status: Acute Current Visit: Yes Assessment and plan: Patient is on IV Rocephin Anemia of chronic disease Status: Chronic current Visit: Yes Assessment and plan: Monitoring CBC Pleural effusion, left Status: Acute Current Visit: Yes Assessment and plan: This is better after left thoracentesis Dyspnea Status: Acute Current Visit: No
[2016-10-18] MEDS: oxyCODONE/ACETAMINOPHEN 5-325 MG TABLET PO PRN ×2 (17:49→22:11)
[2016-10-19] MEDS: ZALEPLON 5 MG CAPSULE PO PRN ×2 (00:24→21:01)
[2016-10-19] MEDS: ALBUTEROL/IPRATROPIUM 3 ML NEB RESP TX SCH ×4 (01:32→19:38)
[2016-10-19] MEDS: cefTRIAXone 1,000 MG in SODIUM CHLORIDE 0.9% 100 ML IV SCH ×2 (05:31→16:36)
[2016-10-19] MEDS: INSULIN REGULAR 100 UNIT/ML SUBCUT SCH ×4 (08:13→21:02)
[2016-10-19] MEDS: amLODIPine 10 MG TABLET PO SCH (09:05)
[2016-10-19] MEDS: MORPHINE ER 30 MG TABLET PO SCH ×2 (09:06→21:00)
[2016-10-19] MEDS: PANTOPRAZOLE 40 MG TABLET PO SCH (09:06)
[2016-10-19] MEDS: FUROSEMIDE 40 MG/4 ML VIAL IV SCH (09:07)
--- NOTE | 2016-10-19 10:08 | Urology Progress Note ---
Urology - PN: Subj Interval history: The patient did not have any problems with the Olmstead catheter out. I am going to recheck her BUN and creatinine. Will try again with the next 1-2 weeks to see if we can get an antegrade stent in. This could be done inpatient or outpatient. It is okay with me to discharge the patient as needed Exam - Constitutional Vitals: Period Temp Pulse Resp BP Sys/Bertrand Pulse Ox Last 24 Hr 97.6 F-98.7 F 76-93 16-20 104-170/64-78 85-99 Results - Labs CBC & BMP: 10/17/16 04:35 10/17/16 04:35
[2016-10-19] MEDS: ENOXAPARIN 40 MG/0.4 ML SYRINGE SUBCUT SCH (10:13)
[2016-10-19] MEDS: SODIUM CHLORIDE 0.45% 1,000 ML IV SCH (10:43)
[2016-10-19 11:42] LABS: Basophils % 0.4 % (0.0-0.8); Eosinophils # 0.5 10*3/uL (0.0-0.87); Eosinophils % 4.4 % (0.00-10.9); Hematocrit 30.7 VOL% (35.7-47.0); Hemoglobin 9.8 GM/DL (12.0-16.0); Immature Granulocytes % 0.4 %; Immature Granulocytes Absolute 0.05 #; Lymphocytes # 1.4 10*3/uL (1.4-4.0); Lymphocytes % 12.5 % (21.3-54.2); Mean Corpuscular HGB Conc 31.9 GM/DL (32-36); Mean Corpuscular Hemoglobin 29 PG (27-34); Mean Corpuscular Volume 90.6 FL (87-102); Mean Platelet Volume 8.9 FL (9.6-12.0); Monocytes # 0.9 10*3/uL (0.11-0.8); Monocytes % 7.6 % (1.7-12.7); Neutrophils # 8.4 10*3/uL (1.4-7.4); Neutrophils % 74.7 % (38.7-73.9); Platelet Count 559 T/CUMM (130-400); Red Blood Count 3.39 MC/CUMM (3.8-5.5); Red Cell Distribution Width 18.2 % (9.3-17.3); White Blood Count 11.3 T/CUMM (4-12)
--- NOTE | 2016-10-19 13:33 | Hospitalist Progress Note ---
Hospitalist: Subjective Interval history: 46-year-old -[place] female with recurrence of colon cancer bilateral hydronephrosis and renal failure. She is status post right nephrostomy tube by urology as they were unable to get a ureteral stent in an antegrade direction. He is otherwise comfortable Exam - Constitutional Vitals: Period Temp Pulse Resp BP Sys/Bertrand Pulse Ox Last 24 Hr 97.6 F-98.3 F 76-96 16-20 104-170/64-78 85-99 Exam: General: No Acute Distress HEENT: Normocephalic, atraumatic, Extra ocular movements intact Neck: Supple, No JVD Chest: Clear to auscultation B/L CV: S1 + S2 audible without murmur, gallop or rub Abd: soft, NT, Non-distended, BS + Ext: No edema Skin: No purpura, bruising or rash Rheumatologic: No Joint deformities Neurologic: Strength 5/5 all extremities, no gross sensory deficits Results - Labs CBC & BMP: 10/19/16 10:33 10/19/16 10:33 - Impressions Assessment and plan: Colon cancer Status: Acute Assessment and plan: She appears to have recurrent disease, per oncology her CEA level was increased at last clinic visit Current Visit: Yes Bilateral hydronephrosis and hydroureter Status: Acute Assessment and plan: This appears to be due to involvement of ureters what I suspect colon cancer. She is status post right percutaneous nephrostomy by IR. Current Visit: Yes Acute renal failure, obstructive Status: Acute Current Visit: Yes Assessment and plan: Creatinine is improving after percutaneous nephrostomy, monitoring metabolic profile rostomy Bacterial pneumonia Status: Acute Current Visit: Yes Assessment and plan: Patient is on IV Rocephin Anemia of chronic disease Status: Chronic current Visit: Yes Assessment and plan: Monitoring CBC Pleural effusion, left Status: Acute Current Visit: Yes Assessment and plan: This is better after left thoracentesis Dyspnea Status: Acute Current Visit: No This is better
[2016-10-20] MEDS: ALBUTEROL/IPRATROPIUM 3 ML NEB RESP TX SCH ×3 (00:43→12:50)
[2016-10-20] MEDS: oxyCODONE/ACETAMINOPHEN 5-325 MG TABLET PO PRN ×2 (04:34→14:40)
[2016-10-20] MEDS: cefTRIAXone 1,000 MG in SODIUM CHLORIDE 0.9% 100 ML IV SCH (04:37)
[2016-10-20 05:53] LABS: Basophils % 0.4 % (0.0-0.8); Eosinophils # 0.5 10*3/uL (0.0-0.87); Hematocrit 29.1 VOL% (35.7-47.0); Hemoglobin 9.1 GM/DL (12.0-16.0); Immature Granulocytes % 0.4 %; Immature Granulocytes Absolute 0.04 #; Lymphocytes # 1.3 10*3/uL (1.4-4.0); Lymphocytes % 12.9 % (21.3-54.2); Mean Corpuscular HGB Conc 31.3 GM/DL (32-36); Mean Corpuscular Hemoglobin 29 PG (27-34); Mean Corpuscular Volume 91.8 FL (87-102); Mean Platelet Volume 8.8 FL (9.6-12.0); Monocytes # 0.7 10*3/uL (0.11-0.8); Monocytes % 6.9 % (1.7-12.7); Neutrophils # 7.6 10*3/uL (1.4-7.4); Neutrophils % 74.4 % (38.7-73.9); Platelet Count 530 T/CUMM (130-400); Red Blood Count 3.17 MC/CUMM (3.8-5.5); Red Cell Distribution Width 17.6 % (9.3-17.3); White Blood Count 10.3 T/CUMM (4-12)
[2016-10-20 06:35] LABS: Albumin 2.3 G/DL (3.4-5.0); Bilirubin,Total 0.6 MG/DL (0.2-1.0); Calcium 8.4 MG/DL (8.5-10.1); Magnesium 1.3 MG/DL (1.8-2.4); Potassium 4.2 MMOL/L (3.5-5.1); Total Protein 6.5 G/DL (6.4-8.3)
[2016-10-20] MEDS: INSULIN REGULAR 100 UNIT/ML SUBCUT SCH ×2 (07:44→13:12)
--- NOTE | 2016-10-20 07:46 | Urology Progress Note ---
Urology - PN: Subj Interval history: The patient is tolerating the nephrostomy tube well. Creatinine is stable about 2. We will continue nephrostomy tube drainage at the present and can periodically try to convert this to an internal stent Exam - Constitutional Vitals: Period Temp Pulse Resp BP Sys/Bertrand Pulse Ox Last 24 Hr 97.6 F-98 F 82-96 16-20 133-170/67-78 84-99 Results - Labs CBC & BMP: 10/20/16 05:08 10/20/16 05:08
--- NOTE | 2016-10-20 07:59 | Oncology Progress Note ---
Assessment and Plan (1) Colon cancer Status: Acute Current Visit: Yes (2) Pleural effusion, left Status: Acute Current Visit: Yes (3) Dyspnea Status: Acute Current Visit: No Qualifiers: Dyspnea type: shortness of breath Qualified Code(s): R06.02 - Shortness of breath (4) Hydronephrosis due to obstruction of ureter Problem details: proximal ureteral obstruction on intraop retrograde uretrogram Status: Acute Current Visit: No (5) Sacral lesion Problem details: PET +ve - seen on August Status: Acute Current Visit: No (6) Acute renal failure Status: Acute Current Visit: Yes Oncology Subjective PN Interval history: Ms. Burnham seems to be stable today. She states she feels well and her breathing has improved. I have not yet seen cytology on the pleural fluid that was removed. Hopefully this was sent at the time of thoracentesis and it is just not returned yet. Regardless of the results of the thoracentesis we are going to initiate chemotherapy. My diagnosis of recurrent cancer is presumptive based on new PET findings and a rising CEA. We have been unable to obtain a biopsy-proven diagnosis. This will make following her very difficult. My plan is to give her a partial dose of irinotecan today and then see her back in clinic in 2 weeks to initiate full strength chemotherapy as long as she does well. I am fearful that her prognosis is going to be very poor and she may not tolerate chemotherapy very long. From my standpoint she can be discharged home after the chemotherapy is complete. Again she will need a follow-up to see me in clinic in 2 weeks with a CBC, CMP, and CEA. Exam - Constitutional Vitals: Period Temp Pulse Resp BP Sys/Bertrand Pulse Ox Last 24 Hr 97.6 F-98 F 82-96 16-20 133-170/67-78 84-99 General appearance: normal weight, no acute distress - Head Head Exam: Present: normocephalic, atraumatic - Eye Eye Exam: Present: EOMI Pupils: Present: PERRL - ENT ENT exam: Present: normal exam, normal oropharynx - Neck Neck exam: Absent: lymphadenopathy, thyromegaly - Respiratory Respiratory exam: Present: CTAB. Absent: wheezes - Cardiovascular Cardiovascular exam: Present: RRR. Absent: JVD, systolic murmur - GI/Abdominal GI/Abdominal exam: Present: soft. Absent: ascites, distended, mass - Neurological Exam Neurological exam: Present: alert, oriented X3 - Psychiatric Psychiatric exam: Present: normal affect, normal mood - Skin Skin exam: Present: warm, dry Results - Labs CBC & BMP: 10/20/16 05:08 10/20/16 05:08 Lab Results: I have reviewed the past 24 hour labs
[2016-10-20] MEDS: MORPHINE ER 30 MG TABLET PO SCH (08:00)
[2016-10-20] MEDS: amLODIPine 10 MG TABLET PO SCH (08:00)
[2016-10-20] MEDS: FUROSEMIDE 40 MG/4 ML VIAL IV SCH (08:00)
[2016-10-20] MEDS: PANTOPRAZOLE 40 MG TABLET PO SCH (08:00)
[2016-10-20] MEDS ORDERED: DEXAMETHASONE 10 MG/1 ML VIAL IV ONE (08:01)
[2016-10-20] MEDS ORDERED: GRANISETRON 1 MG/1 ML VIAL IV SCH (08:30)
[2016-10-20] MEDS ORDERED: IRINOTECAN 250 MG in DEXTROSE 5% 250 ML IV ONE (09:00)
[2016-10-20] MEDS: ENOXAPARIN 40 MG/0.4 ML SYRINGE SUBCUT SCH (10:02)
[2016-10-20] MEDS ORDERED: HEPARIN LOCK FLUSH 500 UNIT/5 ML SYRINGE IV ONE (15:32)
--- NOTE | 2016-10-20 15:38 | Discharge Summary ---
Hospital Course - Hospital Course Hospital Course: 46-year-old -[place] female with history of colon cancer was admitted to the hospitalist service for evaluation of shortness of breath. She was found to have bacterial pneumonia that was present on admission as well as acute hypoxemic respiratory failure due to pneumonia and pleural effusion. She also had acute renal failure on chronic kidney disease which was felt to be obstructive and urology were consulted, they were unable to place a ureteral stent therefore interventional radiology was consulted and she underwent nephrostomy, and her acute kidney injury started improving. She had left pleural effusion and received a left thoracentesis symptoms improved. Oncology were consulted and patient was seen by Dr. Oconnor and felt that patient has recurrence of her colon cancer, and they did initiate chemotherapy in the hospital as her kidney function improved. She does have a previous colostomy. She had problem problems with electrode imbalance and hypomagnesemia which was replaced. Ammonia was treated with IV antibiotics and that has also improved. Overall she is feeling much better and has reached maximal hospital benefit and being discharged home in improved and stable condition. She will continue to follow-up with urology and oncology and primary care physician as an outpatient. Prescriptions and discharge structures were provided. Total discharge time was 39 minutes. - Time spent with patient Time with patient DS: Greater than 30 minutes Discharge Plan - Discharge Data Condition at Discharge: Stable Discharge Diet: advance to your usual diet Activity: resume usual activities as tolerated Hygiene: no restrictions Weight Bearing at Discharge: full weight bearing Driving: not until seen by doctor Contact your physician if you experience:: Nausea/Vomiting - Discharge Medications New Levofloxacin Tab [Levaquin Tab] 250 mg PO DAILY #10 tablet Magnesium Oxide 400 mg PO DAILY #30 tablet Morphine ER Tab [Ms Contin] 30 mg PO BID #60 tablet HYDROcodone/ACETAMIN 5-325 [Haven 5-325] 1 tablet PO Q4H PRN #30 tablet PRN Reason: Pain Mild (1-3) Continue amLODIPine [Norvasc] 10 mg PO DAILY #30 tablet Ondansetron [Ondansetron Odt] 8 mg PO Q4H PRN #10 tab.rapdis PRN Reason: Nausea Nicotine [Nicotine 21 mg/24 Hr Patch] 1 patch TRANSDERM DAILY Discontinued metFORMIN [Glucophage] 1,000 mg PO BID W/MEALS Oxycodone HCl/Acetaminophen [Percocet 7.5-325 mg Tablet] 1 each PO Q4-6H PRN PRN Reason: Pain Morphine Sulfate [Morphine Sulfate ER] 30 mg PO BID - Follow Up or Referral - Forms/Instructions Exam - Constitutional Vitals: Period Temp Pulse Resp BP Sys/Bertrand Pulse Ox Last 24 Hr 97.6 F-98 F 77-91 16-20 133-158/67-79 84-100 Exam: General: No Acute Distress HEENT: Normocephalic, atraumatic, Extra ocular movements intact Neck: Supple, No JVD Chest: Clear to auscultation B/L CV: S1 + S2 audible without murmur, gallop or rub Abd: soft, NT, Non-distended, BS + Ext: No edema Skin: No purpura, bruising or rash Rheumatologic: No Joint deformities Neurologic: Strength 5/5 all extremities, no gross sensory deficits Discharge Results Procedures and tests throughout hospitalization: Pending Orders 10/16/16 08:17 Blood Culture Stat 10/16/16 15:11 Cytology Request Routine Labs on day of discharge: Labs from last 24 hours 10/20/16 10/20/16 10/20/16 11:43 07:36 05:08 WBC RBC Hgb Hct MCV MCH MCHC RDW Plt Count MPV Neut % (Auto) Lymph % (Auto) [place]y % (Auto) Eos % (Auto) Baso % (Auto) Neut # (Auto) Lymph # (Auto) [place] # (Auto) Eos # (Auto) Baso # (Auto) Immature Gran % Nucleated RBC % Immature Gran # Nucleated RBCs # Immature Plt Fraction Sodium 136 Potassium 4.2 Chloride 101 Carbon Dioxide 27 Anion Gap 12.2 BUN 17 Creatinine 2.00 H GFR Calculation 34 BUN/Creatinine Ratio 8.00 Glucose 247 H POC Glucose 264 H 132 H Calculated Osmolality 281.0 Calcium 8.4 L Magnesium 1.3 L Total Bilirubin 0.60 AST 11 ALT 11 L Alkaline Phosphatase 235 H Total Protein 6.5 Albumin 2.3 L Globulin 4.2 H Albumin/Globulin Ratio 0.5 L 10/20/16 10/19/16 10/19/16 05:08 20:58 16:22 WBC 10.3 RBC 3.17 L Hgb 9.1 L Hct 29.1 L MCV 91.8 MCH 29 MCHC 31.3 L RDW 17.6 H Plt Count 530 H MPV 8.8 L Neut % (Auto) 74.4 H Lymph % (Auto) 12.9 L [place]offey % (Auto) 6.9 Eos % (Auto) 5.0 Baso % (Auto) 0.4 Neut # (Auto) 7.6 H Lymph # (Auto) 1.3 L [place]y # (Auto) 0.7 Eos # (Auto) 0.5 Baso # (Auto) 0.0 Immature Gran % 0.4 Nucleated RBC % 0.0 Immature Gran # 0.04 Nucleated RBCs # 0.00 Immature Plt Fraction 0.0 Sodium Potassium Chloride Carbon Dioxide Anion Gap BUN Creatinine GFR Calculation BUN/Creatinine Ratio Glucose POC Glucose 158 H 190 H Calculated Osmolality Calcium Magnesium Total Bilirubin AST ALT Alkaline Phosphatase Total Protein Albumin Globulin Albumin/Globulin Ratio Preliminary micro results at discharge 10/16/16 08:17 Blood Culture - Preliminary Blood No growth at 3 days 10/16/16 08:17 Blood Culture - Preliminary Blood No growth at 3 days DS: Provider Date of admission: 10/16/16 10:16 Primary care physician: . No PCP Attending physician on admission: Jens Peña MD Consults: 10/16/16 11:31 Consult to Physician [CONS] Routine Comment: Consulting Provider: Venkatesh Oconnor Consulting Provider Notified: Yes When should Consulting Provider be notified: Now Consult to Specialist Group: Oncology When should Consulting Provider be notified: Now Person Notified: DANY Date Notified: 10/16/16 Time Notified: 12:37 10/16/16 12:07 Consult to Dietitian [CONS] Routine Reason for Dietitian: Diet Instruction 10/16/16 15:09 Consult to Physician [CONS] Routine Comment: patient known to you R hydronephrosis Consulting Provider: Zackary Juarez Consulting Provider Notified: Yes When should Consulting Provider be notified: Now Consult to Specialist Group: Urology When should Consulting Provider be notified: Now Person Notified: DR JUAREZ SAW PATIENT Date Notified: 10/17/16 Time Notified: 08:34 Discharging clinician: Chuck Montez MD
[2016-10-20 16:26] VITALS: BP 155/74
[2016-10-21] MEDS ORDERED: LEVOFLOXACIN 250 MG TABLET PO SCH (09:00)
[2016-10-21] MEDS ORDERED: MAGNESIUM OXIDE 400 MG TABLET PO SCH (09:00)
== END 2016-10-20 17:00 | disposition home or self-care (01) | DRG 193 ==
LOC: EDUNIT# → EDBD → N.ED 07:58 → N.EDINP 10:16 → SUATTDRO 10:16 → N.4E 11:17
PROVIDERS: ADMIT Internal Medicine Geriatric Medicine; ATTEND Hospitalist

== ENCOUNTER 2016-11-30 12:03 | Inpatient (IN) ==
[2016-11-30] MEDS ORDERED: SODIUM CHLORIDE 0.9% 1,000 ML IV STA (12:23)
--- NOTE | 2016-11-30 13:09 | XRay Report ---
Portable chest Indication: Shortness of breath, cough fever Comparison: October 17, 2016 Findings: Cardiomediastinal contours are stable with no change in chemotherapy port placement. Residual stranding parenchymal densities within the right lung base with small pleural effusion, improved since interval study. Left lung remains clear. No acute osseous abnormalities. Visualized upper abdomen demonstrates no acute pathology. Impression: Residual interstitial and airspace opacities within the right lung base and small pleural effusion, improved when compared with interval study. PROCEDURE INTERPRETED AT [facility] DEPARTMENT OF RADIOLOGY Final Report Signed by: Reynaldo Reyna MD
[2016-11-30 13:29] LABS: Apearance,Urine CLOUDY (Clear); Bacteria,Urine Occasional /HPF (Few); Bilirubin,Urine Negative (Negative); Blood, Urine Large mg/dL (Negative); Glucose,Urine (UA) 150 mg/dL (Negative); Ketones,Urine Negative (Negative); Mucus,Urine Occasional /LPF (Occasional); Nitrite,Urine Negative (Negative); Protein,Urine >=500 MG/DL; RBC,Urine 1312 /HPF (0-4); Squamous Epithelial Cell,Urine Occasional /HPF (0-10); Urine Specific Gravity 1.018 (1.001-1.035); Urine Urobilinogen < 2.0 EU/DL (0.2-1.0); WBC,Urine 2977 /HPF (0-6)
[2016-11-30 13:30] LABS: Urine Color Amber (Yellow)
[2016-11-30] MEDS ORDERED: MEROPENEM 1,000 MG in SODIUM CHLORIDE 0.9% 100 ML IV STA (13:34)
[2016-11-30] MEDS ORDERED: MEROPENEM 1,000 MG VIAL IV ONE (13:51)
[2016-11-30 13:55] LABS: Basophils % 0.5 % (0.0-0.8); Eosinophils % 0.4 % (0.00-10.9); Hematocrit 32.3 VOL% (35.7-47.0); Hemoglobin 10.9 GM/DL (12.0-16.0); Immature Granulocytes % 0.6 %; Immature Granulocytes Absolute 0.05 #; Lymphocytes # 1.2 10*3/uL (1.4-4.0); Mean Corpuscular HGB Conc 33.7 GM/DL (32-36); Mean Corpuscular Hemoglobin 28 PG (27-34); Mean Corpuscular Volume 83.5 FL (87-102); Mean Platelet Volume 8.2 FL (9.6-12.0); Monocytes # 0.3 10*3/uL (0.11-0.8); Monocytes % 3.3 % (1.7-12.7); Neutrophils # 6.9 10*3/uL (1.4-7.4); Neutrophils % 81.2 % (38.7-73.9); Platelet Count 716 T/CUMM (130-400); Red Blood Count 3.87 MC/CUMM (3.8-5.5); Red Cell Distribution Width 15.3 % (9.3-17.3); White Blood Count 8.5 T/CUMM (4-12)
[2016-11-30] MEDS ORDERED: HYDROmorphone 2 MG/1 ML VIAL IV STA (14:15)
[2016-11-30 14:20] LABS: Alanine Aminotransferase 12 U/L (13-56); Albumin 2.6 G/DL (3.4-5.0); Alkaline Phosphatase 246 U/L (45-117); Aspartate Amino Transferase 8 U/L (0-37); Bilirubin,Total < 0.39 MG/DL (0.2-1.0); Blood Urea Nitrogen 24 MG/DL (7-18); Calcium 9.1 MG/DL (8.5-10.1); Glucose 240 MG/DL (74-106); Osmolality,Calculated 279.2 MOS/KG (273-304); Potassium 4.2 MMOL/L (3.5-5.1); Sodium 134 MMOL/L (136-145); Total Protein 7.3 G/DL (6.4-8.3)
[2016-11-30] MEDS ORDERED: HYDROmorphone 2 MG/1 ML VIAL ONE (14:29)
[2016-11-30] MEDS ORDERED: ACETAMINOPHEN 325 MG TABLET PO PRN (15:47)
[2016-11-30] MEDS ORDERED: LACTULOSE 20 GM/30 ML UDCUP PO PRN (15:47)
[2016-11-30] MEDS ORDERED: ALUMINUM/MAGNES/SIMETH MAX STR 30 ML UDCUP PO PRN (15:47)
[2016-11-30] MEDS ORDERED: MYLANTA/LIDO VISC 2:1 300 ML BOTTLE SWISH/SWAL PRN (15:47)
[2016-11-30] MEDS ORDERED: LOPERAMIDE 2 MG CAPSULE PO PRN (15:47)
[2016-11-30] MEDS ORDERED: BENZTROPINE 2 MG/2 ML AMP IV PRN (15:47)
[2016-11-30] MEDS ORDERED: guaiFENesin 200 MG/10 ML UDCUP PO PRN (15:47)
[2016-11-30] MEDS ORDERED: chlorproMAZINE INJ 25 MG in SODIUM CHLORIDE 0.9% 100 ML IV PRN (15:47)
[2016-11-30] MEDS ORDERED: chlorproMAZINE INJ 50 MG in SODIUM CHLORIDE 0.9% 100 ML IV PRN (15:47)
[2016-11-30] MEDS ORDERED: diphenhydrAMINE CAP 25 MG CAPSULE PO PRN (15:47)
[2016-11-30] MEDS ORDERED: MAGNESIUM HYDROXIDE SUSP 30 ML UDCUP PO PRN (15:47)
[2016-11-30] MEDS ORDERED: PROMETHAZINE INJ 25 MG in SODIUM CHLORIDE 0.9% 50 ML IV PRN (15:47)
[2016-11-30] MEDS ORDERED: traMADol 50 MG TABLET PO PRN (15:47)
[2016-11-30] MEDS ORDERED: MYLANTA/LIDO VISC 2:1 300 ML BOTTLE SWISH/SPIT PRN (15:47)
[2016-11-30] MEDS ORDERED: chlorproMAZINE 25 MG TABLET PO PRN (15:47)
--- NOTE | 2016-11-30 15:47 | Emergency Department Note ---
Kelechi Rene Jessica J, am scribing for, and in the presence of, Hubert Miguel MD 12:26. Lamont Rene Doug C, MD, personally performed the services described in this documentation, ascribed by Emily Lorenz in my presence, and it is both accurate and complete 546 . Arrival - Arrival Chief Complaint: Fever Stated Complaint: fever ED Nursing Triage Note: C/O Having chills, weakness x 2 days, states she is currently being tx for colon and stomach cancer, last chemo was on thursday , denies checking temp., accucheck in route 300 Mode of Arrival: Stretcher Limitations: No Limitations Source: Patient, Old Records Reviewed, RN Notes Reviewed Time Seen by Provider: 11/30/16 12:23 - History of Present Illness HPI Narrative: Patient is a 46-year-old black female presents emergency room nausea fever and chills started 2 days ago. Patient has a history of stage IV colon cancer. Patient is having some vomiting and feels exceedingly weak. She still receiving chemotherapy she tells me. She denies any blood in her vomitus or any blood in her colostomy bag. She is not having any respiratory symptoms at present. Onset (ago): day(s) Consistency: constant Allergies/Adverse Reactions: Allergies Allergy/AdvReac Type Severity Reaction Status Date / Time Erythromycin Base Allergy Joint Pain Verified 11/30/16 12:15 Home Medications: Home Medications Medication Instructions Recorded Confirmed Type Ondansetron [Ondansetron Odt] 8 mg PO Q4H PRN #10 tab.rapdis 09/24/16 11/30/16 Rx Nicotine [Nicotine 21 mg/24 Hr 1 patch TRANSDERM DAILY 10/16/16 11/30/16 History Patch] Oxycodone HCl/Acetaminophen 1 tablet Q6HR PRN 11/10/16 11/30/16 History [Percocet 10-325 mg Tablet] Metformin HCl [Metformin HCl] 1,000 mg PO BID 11/30/16 11/30/16 History Morphine ER Tab [Ms Contin] 30 mg PO TID 11/30/16 11/30/16 History amLODIPine [Norvasc] 10 mg PO QAM 11/30/16 11/30/16 History Review of System - Review of System 12 point system: reviewed and no additional remarkable complaints except as stated - Review of System Constitutional: Present: chills, fever Eyes: Absent: vision change Head/Ears/Nose/Throat: Absent: earache Respiratory: Absent: cough Cardiovascular: Absent: chest pain Gastrointestinal: Present: nausea, vomiting Genitourinary female: Absent: dysuria Musculoskeletal: Absent: arm pain, back pain, lower back pain, neck pain Skin: Absent: rash Neurological: Absent: headache Psychiatric: Absent: anxiety Hematological/Lymphatic: Absent: easy bleeding, easy bruising Medical,Surgical,& Family Hx - Medical History Cardio: History of: Hypertension Psychological: No history of: Psychiatric Problems Neurology: History of: Migraine, Peripheral Neuropathy No history of: Seizures HEENT: History of: Dental Problems (DENTURES) Endocrine: History of: Diabetes Mellitus (NIDDM) Respiratory: History of: Respiratory Problems (FLUID BUILD UP R LUNG SOB; FLU VAC-YES; PNEU VAC- NO. DR URRUTIA.) Genitourinary: History of: Kidney Stones, Recurring Urinary Tract Infections No history of: Problems Gastrointestinal: History of: Bowel Obstruction, Gastrointestinal Cancer (colon ca with colostomy), GI Problems (Colon cancer, colostomy placement) Musculoskeletal: History of: Back/Neck Problems (BACK PAIN; DR SEE DALAL PAIN ; BACK INJ LAST 07/2016.), Musculoskeletal Problems (Sacral Lesion) No history of: Musculoskeletal Cancer (10/13/16 Sched for Bx Sacarl Lesion RAD ) Hematology: History of: Clotting Problems (DVT RUE 11.25.14) Reproductive: History of: Ovarian Cysts Other: History of: Cancer (COLON CA 2013 Chemo;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 DR JUAREZ.) Abdominal Surgeries: Surgical HX of: Abdominal Surgery, Appendectomy, Colonoscopy Reproductive Surgeries: Surgical HX of;: Genitourinary Surgery (Lt Ureteral Stent 08/2016), Hysterectomy, Tubal Ligation - Family History Family History: Reports;: Family Diabetes, Family Heart Disease, Family Hypertension, Family Stroke - Social History Smoking Status: Smoker, status unknown Frequency of Alcohol Use: Rarely Type of Drug Use: Marijuana Exam Vital Signs: Vital Signs Temperature 98.5 F 11/30/16 14:30 Pulse Rate 79 11/30/16 15:30 Respiratory Rate 16 11/30/16 15:30 Blood Pressure 160/75 11/30/16 15:30 O2 Sat by Pulse Oximetry 100 11/30/16 15:30 - General General appearance: alert, in no apparent distress - Head Head exam: Present: atraumatic, normocephalic - Eye Eye exam: Present: normal appearance, PERRL, EOMI - ENT ENT exam: Present: normal exam, normal oropharynx, mucous membranes moist. Absent: mucous membranes dry - Neck Neck exam: Present: normal inspection, full ROM, trachea midline - Chest Chest inspection: Present: normal inspection, symmetric chest wall rise - Respiratory Respiratory exam: Present: normal lung sounds bilaterally. Absent: respiratory distress - Cardiovascular Cardiovascular exam: Present: regular rate, normal rhythm, normal heart sounds - Abdominal Exam Abdominal exam: Present: soft, tenderness (Right sided ), normal bowel sounds - Extremities Exam Extremities exam: Present: normal inspection, full ROM. Absent: tenderness - Back Exam Back exam: Present: normal inspection, full ROM. Absent: tenderness - Neurological Exam Neurological exam: Present: alert, oriented X3, CN II-XII intact. Absent: motor sensory deficit - Psychiatric Psychiatric exam: Present: normal affect, normal mood - Skin Skin exam: Present: warm, dry, intact, normal color Course Course Narrative: Patient's clinical presentation, laboratory and radiograph findings were discussed with her regular physician Dr. Oconnor. He recommends admitting the patient his services and continue present antibiotic therapy Results - Labs CBC & BMP: 11/30/16 13:48 11/30/16 13:48 Lab Results: I have reviewed the patients labs Labs: Laboratory Tests 11/30/16 12:45 Urine pH 6.0 Ur Specific [place] 1.018 Urine Protein >=500 Urine Glucose (UA) 150 Urine Urobilinogen < 2.0 H Urine Leukocytes Large H Urine RBC 1312 Urine WBC 2977 Laboratory Tests 11/30/16 13:48 WBC 8.5 RBC 3.87 Hgb 10.9 L Hct 32.3 L MCV 83.5 L Plt Count 716 H MPV 8.2 L Neut % (Auto) 81.2 H Lymph % (Auto) 14.0 L Lymph # (Auto) 1.2 L Laboratory Tests 11/30/16 13:48 Sodium 134 L Potassium 4.2 Chloride 99 Carbon Dioxide 28 BUN 24 H Creatinine 1.40 H Glucose 240 H ALT 12 L Alkaline Phosphatase 246 H C-Reactive Protein 1.96 H Albumin 2.6 L Globulin 4.7 H Albumin/Globulin Ratio 0.5 L Lipase 248.0 - Diagnostic Findings Procedure: Chest x-ray: report reviewed by me (Residual interstitial and airspace opacities within the right lung base and small pleural effusion, improved when compared with interval study. ) Disposition Clinical Impression: UTI (urinary tract infection) Case discussed with: patient, patient's family Disposition: Still a Patient Condition: Stable Time of Disposition: 15:46
[2016-11-30] MEDS: HYDROmorphone 2 MG/1 ML VIAL IV PRN ×3 (17:05→23:12)
[2016-11-30] MEDS: SODIUM CHLORIDE 0.9% 1,000 ML IV SCH (17:07)
[2016-11-30] MEDS ORDERED: ONDANSETRON ODT 4 MG TABLET PO PRN (17:49)
[2016-11-30] MEDS: ENOXAPARIN 40 MG/0.4 ML SYRINGE SUBCUT SCH (18:24)
[2016-11-30] MEDS ORDERED: MEROPENEM 1,000 MG in SODIUM CHLORIDE 0.9% 50 ML IV SCH (19:00)
[2016-11-30] MEDS: MORPHINE ER 30 MG TABLET PO SCH (20:19)
[2016-11-30] MEDS: metFORMIN 500 MG TABLET PO SCH (20:19)
[2016-11-30] MEDS: MEROPENEM 1,000 MG in SODIUM CHLORIDE 0.9% 50 ML IV SCH (23:58)
[2016-12-01] MEDS: oxyCODONE/ACETAMINOPHEN 5-325 MG TABLET PO PRN ×3 (00:01→18:22)
[2016-12-01] MEDS: SODIUM CHLORIDE 0.9% 1,000 ML IV SCH ×2 (03:20→18:23)
[2016-12-01 06:14] LABS: Basophils % 0.5 % (0.0-0.8); Eosinophils # 0.2 10*3/uL (0.0-0.87); Hematocrit 25.2 VOL% (35.7-47.0); Hemoglobin 8.4 GM/DL (12.0-16.0); Immature Granulocytes % 0.4 %; Immature Granulocytes Absolute 0.03 #; Lymphocytes # 1.7 10*3/uL (1.4-4.0); Lymphocytes % 23.1 % (21.3-54.2); Mean Corpuscular HGB Conc 33.3 GM/DL (32-36); Mean Corpuscular Hemoglobin 28 PG (27-34); Mean Platelet Volume 8.7 FL (9.6-12.0); Monocytes # 0.5 10*3/uL (0.11-0.8); Monocytes % 6.4 % (1.7-12.7); Neutrophils # 5.1 10*3/uL (1.4-7.4); Neutrophils % 67.6 % (38.7-73.9); Platelet Count 626 T/CUMM (130-400); Red Cell Distribution Width 15.2 % (9.3-17.3); White Blood Count 7.5 T/CUMM (4-12)
[2016-12-01] MEDS: HYDROmorphone 2 MG/1 ML VIAL IV PRN ×7 (06:20→23:27)
[2016-12-01 06:33] LABS: Hypochromasia 1+; Ovalocytes Slight; Platelet Estimate Increased
[2016-12-01 06:34] LABS: Giant Platelets Few; Microcytosis Slight
--- NOTE | 2016-12-01 08:02 | Oncology History&Physical ---
Assessment and Plan - Time spent with patient Time spent with patient: Greater than 30 minutes (1) UTI (urinary tract infection) Status: Acute Assessment and plan: We will continue with her on Merrem. I will await cultures. We will likely discharge her home tomorrow. Current Visit: Yes (2) Colon cancer Status: Acute Current Visit: No (3) Hydronephrosis due to obstruction of ureter Problem details: proximal ureteral obstruction on intraop retrograde uretrogram Status: Acute Current Visit: No (4) Sacral lesion Problem details: PET +ve - seen on August Status: Acute Current Visit: No History of Present Illness History of present illness: Ms. Burnham is a 46 year old female with recurrent colon cancer currently receiving palliative chemotherapy. She also has an right ureteral stent due to obstruction. This was placed in mid October 2016. She presented to the emergency room yesterday complaining of fevers. Her urinalysis showed significant white cells and red cells. She was placed on Merrem and admitted to the hospital for observation. She has had no fever since being in the hospital. We are still awaiting with of her cultures. She feels much better this morning. Her hemoglobin today is 8.5. This is after aggressive rehydration. Her pain is better controlled. We will watch her for another 24 hours and plan for discharge tomorrow. We are planning to have her Mediport exchanged later this week given that her current one is being impinged by her left clavicle. If her hemoglobin drops below 8 on lab work tomorrow morning, we will likely transfuse 2 units of blood before discharge. I am uncertain if exchanging her stent at this time would be of any real benefit. We will leave it in place for now. Home Medications Medication Instructions Recorded Confirmed Type Ondansetron [Ondansetron Odt] 8 mg PO Q4H PRN #10 tab.rapdis 09/24/16 11/30/16 Rx Nicotine [Nicotine 21 mg/24 Hr 1 patch TRANSDERM DAILY 10/16/16 11/30/16 History Patch] Oxycodone HCl/Acetaminophen 1 tablet Q6HR PRN 11/10/16 11/30/16 History [Percocet 10-325 mg Tablet] Metformin HCl [Metformin HCl] 1,000 mg PO BID 11/30/16 11/30/16 History Morphine ER Tab [Ms Contin] 30 mg PO TID 11/30/16 11/30/16 History amLODIPine [Norvasc] 10 mg PO QAM 11/30/16 11/30/16 History Allergies Allergy/AdvReac Type Severity Reaction Status Date / Time Erythromycin Base Allergy Joint Pain Verified 11/30/16 12:15 Medical,Surgical,& Family Hx - Medical History Cardio: History of: Hypertension Psychological: No history of: Psychiatric Problems Neurology: History of: Migraine, Peripheral Neuropathy No history of: Seizures HEENT: History of: Dental Problems (DENTURES) Endocrine: History of: Diabetes Mellitus (NIDDM) Respiratory: History of: Respiratory Problems (FLUID BUILD UP R LUNG SOB; FLU VAC-YES; PNEU VAC- NO. DR URRUTIA.) Genitourinary: History of: Kidney Stones, Recurring Urinary Tract Infections No history of: Problems Gastrointestinal: History of: Bowel Obstruction, Gastrointestinal Cancer (colon ca with colostomy), GI Problems (Colon cancer, colostomy placement) Musculoskeletal: History of: Back/Neck Problems (BACK PAIN; DR SEE DLAAL PAIN ; BACK INJ LAST 07/2016.), Musculoskeletal Problems (Sacral Lesion) No history of: Musculoskeletal Cancer (10/13/16 Sched for Bx Sacarl Lesion RAD ) Hematology: History of: Clotting Problems (DVT RUE 11.25.14) Reproductive: History of: Ovarian Cysts Other: History of: Cancer (COLON CA 2013 Chemo;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 DR JUAREZ.) Abdominal Surgeries: Surgical HX of: Abdominal Surgery, Appendectomy, Colonoscopy Reproductive Surgeries: Surgical HX of;: Genitourinary Surgery (Lt Ureteral Stent 08/2016), Hysterectomy, Tubal Ligation - Family History Family History: Reports;: Family Cancer (maternal side--several), Family Diabetes, Family Heart Disease (dad and fraternal grandmother), Family Hypertension, Family Stroke - Social History Smoking Status: Smoker, status unknown Frequency of Alcohol Use: Rarely Type of Drug Use: Marijuana 12 point system: reviewed and no additional remarkable complaints except as stated - Constitutional Constitutional: Present: fatigue, fever(s) - Cardiovascular Cardiovascular ROS IM: Absent: chest pain, edema - Respiratory Respiratory: Absent: cough, dyspnea - Gastrointestinal Gastrointestinal: Present: abdominal pain. Absent: nausea, vomiting - Genitourinary Genitourinary ROS female: Present: dysuria, hematuria. Absent: difficulty urinating Exam - Constitutional Vitals: Period Temp Pulse Resp BP Sys/Bertrand Pulse Ox Last 24 Hr 97.3 F-98.6 F 72-103 16-22 147-200/74-108 97-100 General appearance: normal weight, no acute distress - Head Head Exam: Present: normocephalic, atraumatic - Eye Eye Exam: Present: EOMI. Absent: scleral icterus Pupils: Present: PERRL - ENT ENT exam: Present: normal exam - Neck Neck exam: Absent: lymphadenopathy, thyromegaly - Respiratory Respiratory exam: Present: CTAB. Absent: wheezes - Cardiovascular Cardiovascular exam: Present: RRR. Absent: JVD, systolic murmur - GI/Abdominal GI/Abdominal exam: Present: soft. Absent: ascites, distended, firm, mass - Neurological Exam Neurological exam: Present: alert, oriented X3, CN II-XII intact - Psychiatric Psychiatric exam: Present: normal affect, normal mood - Skin Skin exam: Present: warm, dry Results - Labs CBC & BMP: 12/01/16 05:27 11/30/16 13:48 Lab Results: I have reviewed the past 24 hour labs
[2016-12-01] MEDS: MORPHINE ER 30 MG TABLET PO SCH ×3 (08:52→20:24)
[2016-12-01] MEDS: metFORMIN 500 MG TABLET PO SCH ×2 (08:52→20:24)
[2016-12-01] MEDS: PANTOPRAZOLE 40 MG TABLET PO SCH (08:53)
[2016-12-01] MEDS: amLODIPine 10 MG TABLET PO SCH (08:53)
[2016-12-01] MEDS ORDERED: ZINC OXIDE PASTE 113 GM TUBE TOP PRN (12:10)
[2016-12-01] MEDS: MEROPENEM 1,000 MG in SODIUM CHLORIDE 0.9% 50 ML IV SCH ×2 (13:43)
[2016-12-01] MEDS: ENOXAPARIN 40 MG/0.4 ML SYRINGE SUBCUT SCH (15:35)
[2016-12-01] MEDS ORDERED: VANCOMYCIN INJ 1,000 MG in SODIUM CHLORIDE 0.9% 250 ML IV SCH (16:00)
[2016-12-02] MEDS: MEROPENEM 1,000 MG in SODIUM CHLORIDE 0.9% 50 ML IV SCH ×2 (00:50→14:36)
[2016-12-02] MEDS: ONDANSETRON 4 MG/2 ML VIAL IV PRN ×2 (00:56→08:34)
[2016-12-02 06:57] LABS: Basophils % 0.3 % (0.0-0.8); Eosinophils # 0.3 10*3/uL (0.0-0.87); Eosinophils % 3.1 % (0.00-10.9); Hematocrit 25.5 VOL% (35.7-47.0); Hemoglobin 8.4 GM/DL (12.0-16.0); Immature Granulocytes % 0.3 %; Immature Granulocytes Absolute 0.03 #; Lymphocytes # 2.5 10*3/uL (1.4-4.0); Lymphocytes % 26.4 % (21.3-54.2); Mean Corpuscular HGB Conc 32.9 GM/DL (32-36); Mean Corpuscular Hemoglobin 28 PG (27-34); Mean Corpuscular Volume 86.1 FL (87-102); Mean Platelet Volume 8.7 FL (9.6-12.0); Monocytes # 0.6 10*3/uL (0.11-0.8); Monocytes % 5.9 % (1.7-12.7); Neutrophils # 6.1 10*3/uL (1.4-7.4); Platelet Count 631 T/CUMM (130-400); Red Blood Count 2.96 MC/CUMM (3.8-5.5); White Blood Count 9.6 T/CUMM (4-12)
[2016-12-02 07:37] LABS: Alanine Aminotransferase 10 U/L (13-56); Albumin 2.2 G/DL (3.4-5.0); Alkaline Phosphatase 174 U/L (45-117); Aspartate Amino Transferase 9 U/L (0-37); Bilirubin,Total < 0.39 MG/DL (0.2-1.0); Blood Urea Nitrogen 14 MG/DL (7-18); Calcium 8.4 MG/DL (8.5-10.1); Glucose 107 MG/DL (74-106); Magnesium 1.7 MG/DL (1.8-2.4); Osmolality,Calculated 275.7 MOS/KG (273-304); Potassium 4.4 MMOL/L (3.5-5.1); Sodium 138 MMOL/L (136-145); Total Protein 5.7 G/DL (6.4-8.3)
--- NOTE | 2016-12-02 07:54 | Oncology Progress Note ---
Assessment and Plan (1) Colon cancer Status: Acute Current Visit: No (2) Hydronephrosis due to obstruction of ureter Problem details: proximal ureteral obstruction on intraop retrograde uretrogram Status: Acute Current Visit: No (3) Sacral lesion Problem details: PET +ve - seen on August Status: Acute Current Visit: No (4) Gram positive bacterial infection Status: Acute Current Visit: Yes (5) UTI (urinary tract infection) Status: Acute Current Visit: Yes (6) Port catheter in place Status: Acute Current Visit: Yes Oncology Subjective PN Interval history: Ms. Burnham is doing well today. I explained to her that her urine cultures are growing out gram-positive cocci that I need to see the speciation for this. She is not toxic and her blood cultures are negative. I have her covered with vancomycin and Merrem for now. This has probably already cleared her urinary tract infection. She is scheduled to have a Mediport exchange later this week by IR. I will consult them to see if they want to go ahead and do this while she is here for convenience. I do not think it is an issue from an infection standpoint since her UTI seems uncomplicated and is most likely fully treated at this point. I will leave her on her current antibiotics until I see full speciation and sensitivity to determine which p.o. antibiotic I can send her home with. My plan is to discharge her home tomorrow. If IR prefers to wait and exchange her Mediport later, we can reschedule her appointments at discharge. Exam - Constitutional Vitals: Period Temp Pulse Resp BP Sys/Bertrand Pulse Ox Last 24 Hr 96.2 F-98.3 F 71-91 16-20 103-194/53-88 100-100 General appearance: normal weight, no acute distress - Head Head Exam: Present: normocephalic, atraumatic - Eye Eye Exam: Present: EOMI Pupils: Present: PERRL - ENT ENT exam: Present: normal exam, normal oropharynx - Neck Neck exam: Absent: lymphadenopathy, thyromegaly - Respiratory Respiratory exam: Present: CTAB. Absent: wheezes - Cardiovascular Cardiovascular exam: Present: RRR. Absent: JVD, systolic murmur - GI/Abdominal GI/Abdominal exam: Present: soft. Absent: ascites, distended, mass - Neurological Exam Neurological exam: Present: alert, oriented X3 - Psychiatric Psychiatric exam: Present: normal affect, normal mood - Skin Skin exam: Present: warm, dry Results - Labs CBC & BMP: 12/02/16 05:19 12/02/16 05:19 Lab Results: I have reviewed the past 24 hour labs
[2016-12-02] MEDS: PANTOPRAZOLE 40 MG TABLET PO SCH (10:04)
[2016-12-02] MEDS: metFORMIN 500 MG TABLET PO SCH ×2 (10:04→20:02)
[2016-12-02] MEDS: MORPHINE ER 30 MG TABLET PO SCH ×3 (10:04→20:02)
[2016-12-02] MEDS: amLODIPine 10 MG TABLET PO SCH (10:05)
[2016-12-02] MEDS: VANCOMYCIN INJ 1,000 MG in SODIUM CHLORIDE 0.9% 250 ML IV SCH ×2 (11:53→23:34)
[2016-12-02] MEDS: oxyCODONE/ACETAMINOPHEN 5-325 MG TABLET PO PRN ×2 (12:13→23:30)
[2016-12-02] MEDS: ENOXAPARIN 40 MG/0.4 ML SYRINGE SUBCUT SCH (16:03)
[2016-12-02] MEDS: SODIUM CHLORIDE 0.9% 1,000 ML IV SCH (18:25)
[2016-12-03] MEDS: HYDROmorphone 2 MG/1 ML VIAL IV PRN ×5 (02:47→15:05)
--- NOTE | 2016-12-03 06:39 | Physician Query Form ---
CLICK EDIT DOCUMENT TO SELECT QUERY ANSWER --> OK --> SIGN Theresa Vo RN, CCDS Certified Clinical Wheelabrator Operator W) [phone] (f) [phone] [email or web address] PROVIDERS: Make your selection(s) from the choices in EACH section by typing an "x" and enter comments in the comment section. Please use your independent medical judgment in providing your response. This request does not imply that any particular answer is desired or expected. 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 67", Wt 126 pounds, "Loss of 43 lbs or 25.5% of body weight over the past 13 months", and per dietary notes "Trial vanilla Glucerna with lunch". Based on the above, which following choice most accurately represents the patient's nutritional status? (x ) Malnutrition ( ) mild ( ) moderate ( ) severe ( ) Protein calorie malnutrition ( ) mild ( ) moderate ( ) severe ( ) Emaciation due to malnutrition ( ) Nutritional marasmus ( ) Cachexia ( ) Underweight ( ) No nutritional deficiency ( ) Other, please specify: ( ) Clinically unable to determine Mild Malnutrition (BMI < 18.5, % Normal Body Weight 85-95%) Moderate Malnutrition (BMI < 17, % Normal Body Weight 75-85%) Severe Malnutrition (BMI < 16, % Normal Body Weight < 75%) Source: [place] COMMENTS: PLEASE ALSO DOCUMENT RESPONSE IN PROGRESS NOTES AND/OR DISCHARGE SUMMARY Use of terms such as suspected, likely, or probable (associated with a specific diagnosis that is being evaluated, monitored, or treated as if it exists) are acceptable and can be restated in the discharge summary if not ruled out. MTDD
--- NOTE | 2016-12-03 07:39 | Discharge Summary ---
Hospital Course - Hospital Course Hospital Course: Ms. Burnham is a 46-year-old black female with metastatic colon cancer and recently had bony recurrence with likely intrapelvic disease as well causing ureteral obstruction. She has a ureteral stent in place. She presented to the hospital with fevers and was found to have a UTI. Her fever broke rapidly. Her urine culture grew out MRSA. She appears nontoxic. The stent was very difficult to place originally so we have not replaced this at this time but plan to after a couple more rounds of chemotherapy. She was treated with vancomycin and Merrem during her hospital stay. Her having her Mediport exchange today due to compression by the clavicle on the current catheter. I am hoping to get approval of Zyvox to be taken for a few more days as an outpatient. If Zyvox is not approved I will send her home with a prescription for Bactrim and Macrobid for both show sensitivity to the staph aureus. She will keep her usual appointments in clinic. I think she is scheduled to see radiation oncology later this week. - Time spent with patient Time with patient DS: Greater than 30 minutes Diagnosis - Discharge Diagnosis (1) Colon cancer Status: Acute (2) Hydronephrosis due to obstruction of ureter Status: Acute (3) Sacral lesion Status: Acute (4) Gram positive bacterial infection Status: Acute (5) UTI (urinary tract infection) Status: Acute (6) Port catheter in place Status: Acute Discharge Plan - Discharge Data Disposition: Disch To Home/Self Care Condition at Discharge: Stable Discharge Diet: advance to your usual diet Activity: resume usual activities as tolerated Hygiene: no restrictions Weight Bearing at Discharge: full weight bearing Driving: no restrictions - Discharge Medications New Nitrofurantoin Macro/Wells [Macrobid] 100 mg PO BID #14 capsule Sulfameth/Trimeth 800-160 Tab [Bactrim DS Tab] 1 tablet PO BID #14 tablet Continue Ondansetron [Ondansetron Odt] 8 mg PO Q4H PRN #10 tab.rapdis PRN Reason: Nausea Nicotine [Nicotine 21 mg/24 Hr Patch] 1 patch TRANSDERM DAILY Oxycodone HCl/Acetaminophen [Percocet 10-325 mg Tablet] 1 tablet Q6HR PRN PRN Reason: Pain amLODIPine [Norvasc] 10 mg PO QAM Morphine ER Tab [Ms Contin] 30 mg PO TID Metformin HCl 1,000 mg PO BID - Follow Up or Referral - Forms/Instructions Exam - Constitutional Vitals: Period Temp Pulse Resp BP Sys/Bertrand Pulse Ox Last 24 Hr 97.8 F-99.2 F 74-95 16-20 147-199/73-85 97-100 Discharge Results Procedures and tests throughout hospitalization: Pending Orders 11/30/16 13:11 Blood Culture Stat 12/03/16 07:10 Prothrombin Time INR Stat 12/03/16 07:50 Consult to Interventional Rad Routine Labs on day of discharge: Labs from last 24 hours 12/02/16 05:19 Sodium 138 Potassium 4.4 Chloride 105 Carbon Dioxide 24 Anion Gap 13.4 BUN 14 Creatinine 1.10 H GFR Calculation 69 BUN/Creatinine Ratio 12.00 Glucose 107 H Calculated Osmolality 275.7 Calcium 8.4 L Magnesium 1.7 L Total Bilirubin < 0.39 AST 9 ALT 10 L Alkaline Phosphatase 174 H Total Protein 5.7 L Albumin 2.2 L Globulin 3.5 Albumin/Globulin Ratio 0.6 L Preliminary micro results at discharge 11/30/16 13:11 Blood Culture - Preliminary Blood No growth at 1 day 11/30/16 13:11 Blood Culture - Preliminary Blood No growth at 1 day DS: Provider Date of admission: 12/02/16 08:59 Primary care physician: . No PCP Attending physician on admission: Venkatesh Oconnor MD Consults: 11/30/16 17:29 Consult to Dietitian [CONS] Routine Reason for Dietitian: Other Consult Comment: recent weight loss 12/02/16 14:32 Consult to Case Mgmt/Social Srvs [CONS] Routine Reason for Case Mgmt/Social Srvs: Discharge Planning Consult Comment: Please arrange for Zyvox 600mg PO BID for 10 days. Discharging clinician: Venkatesh Oconnor MD
[2016-12-03] MEDS ORDERED: LIDOCAINE 1%/EPI INJ 20 ML VIAL ONE (07:45)
--- NOTE | 2016-12-03 07:58 | Inventional Radiology Consult ---
Assessment and Plan - Time spent with patient Time spent with patient: Less than 30 minutes (1) Port catheter in place Problem details: port does not aspirate Status: Acute Assessment and plan: will remove port and replace as a left IJ approach port while utilizing the same subcutaneous pocket to reduce risk Current Visit: Yes IR Consult - Data of Consult Patient: known to practice within the last 3 years Consult date: 12/02/16 Requesting Physician: Venkatesh Oconnor - Consult Narrative Reason for consult: left chest mediport is not functioning well History of present illness: Chacha is a 46 year old F well known to the interventional service. This patient has a history of colon cancer with obstruction of the bilateral ureters with subsequent placement of bilateral double-J ureteral stents. Recently, the patient had a left chest subclavian Mediport placement done at [facility]. However, it has been noted on multiple imaging studies at there is an area of kinking/crimp within the Mediport catheter at the level of the subclavian vein access/clavicle. Patient notes that this port will flush but will not withdrawal unless she raises her left arm over her head. I discussed with her the need for revision due to the possibility that continued manipulation may result in Mediport dysfunction including catheter breakage. She was recently admitted with UTI but this process is cleared. She has not had any suggestion of sepsis and blood cultures are negative. No fevers during this admission. The patient is currently receiving IV antibiotic treatment. Risks and benefits were discussed. Patient agrees to proceed. - Home Medications and Allergies Home Medications: Home Medications Medication Instructions Recorded Confirmed Type Ondansetron [Ondansetron Odt] 8 mg PO Q4H PRN #10 tab.rapdis 09/24/16 11/30/16 Rx Nicotine [Nicotine 21 mg/24 Hr 1 patch TRANSDERM DAILY 10/16/16 11/30/16 History Patch] Oxycodone HCl/Acetaminophen 1 tablet Q6HR PRN 11/10/16 11/30/16 History [Percocet 10-325 mg Tablet] Metformin HCl [Metformin HCl] 1,000 mg PO BID 11/30/16 11/30/16 History Morphine ER Tab [Ms Contin] 30 mg PO TID 11/30/16 11/30/16 History amLODIPine [Norvasc] 10 mg PO QAM 11/30/16 11/30/16 History Nitrofurantoin Macro/[place] 100 mg PO BID #14 capsule 12/03/16 Rx [Macrobid] Sulfameth/Trimeth 800-160 Tab 1 tablet PO BID #14 tablet 12/03/16 Rx [Bactrim DS Tab] Allergies/Adverse Reactions: Allergies Allergy/AdvReac Type Severity Reaction Status Date / Time Erythromycin Base Allergy Joint Pain Verified 11/30/16 12:15 12 point system: reviewed and no additional remarkable complaints except as stated Medical,Surgical,& Family Hx - Medical History Cardio: History of: Hypertension Psychological: No history of: Psychiatric Problems Neurology: History of: Migraine, Peripheral Neuropathy No history of: Seizures HEENT: History of: Dental Problems (DENTURES) Endocrine: History of: Diabetes Mellitus (NIDDM) Respiratory: History of: Respiratory Problems (FLUID BUILD UP R LUNG SOB; FLU VAC-YES; PNEU VAC- NO. DR URRUTIA.) Genitourinary: History of: Kidney Stones, Recurring Urinary Tract Infections No history of: Problems Gastrointestinal: History of: Bowel Obstruction, Gastrointestinal Cancer (colon ca with colostomy), GI Problems (Colon cancer, colostomy placement) Musculoskeletal: History of: Back/Neck Problems (BACK PAIN; DR SEE DALAL PAIN ; BACK INJ LAST 07/2016.), Musculoskeletal Problems (Sacral Lesion) No history of: Musculoskeletal Cancer (10/13/16 Sched for Bx Sacarl Lesion RAD ) Hematology: History of: Clotting Problems (DVT RUE 11.25.14) Reproductive: History of: Ovarian Cysts Other: History of: Cancer (COLON CA 2013 Chemo;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 DR JUAREZ.) Abdominal Surgeries: Surgical HX of: Abdominal Surgery, Appendectomy, Colonoscopy Reproductive Surgeries: Surgical HX of;: Genitourinary Surgery (Lt Ureteral Stent 08/2016), Hysterectomy, Tubal Ligation - Family History Family History: Reports;: Family Cancer (maternal side--several), Family Diabetes, Family Heart Disease (dad and fraternal grandmother), Family Hypertension, Family Stroke - Social History Smoking Status: Smoker, status unknown Frequency of Alcohol Use: Rarely Type of Drug Use: Marijuana Exam - Labs CBC & BMP: 12/02/16 05:19 12/02/16 05:19 Lab Results: I have reviewed the past 24 hour labs - Constitutional Vitals: Period Temp Pulse Resp BP Sys/Bertrand Pulse Ox Last 24 Hr 97.8 F-99.2 F 74-95 16-20 147-199/73-85 96-100 General appearance: under weight - Eye Eye exam: Present: EOMI - Respiratory Respiratory exam: Present: clear to auscultation bilaterally - Cardiovascular Cardiovascular exam: Present: regular rate and rhythm - GI/Abdominal GI/Abdominal exam: Present: normal bowel sounds - Neurological Exam Neurological exam: Present: alert, oriented X3 - Psychiatric Psychiatric exam: Present: normal affect, normal mood - Skin Skin exam: Present: normal color, dry
[2016-12-03] MEDS ORDERED: DIAZEPAM 5 MG TABLET PO ONE (08:13)
[2016-12-03] MEDS ORDERED: MIDAZOLAM 2 MG/2 ML VIAL IV ONE (08:13)
[2016-12-03] MEDS ORDERED: fentaNYL 100 MCG/2 ML VIAL IV ONE (08:13)
[2016-12-03 08:19] LABS: PT Patient Result 10.2 SECS
[2016-12-03] MEDS: SODIUM CHLORIDE 0.9% 1,000 ML IV SCH (09:20)
[2016-12-03] MEDS: MORPHINE ER 30 MG TABLET PO SCH ×2 (09:21→15:05)
[2016-12-03] MEDS: amLODIPine 10 MG TABLET PO SCH (09:22)
[2016-12-03] MEDS: metFORMIN 500 MG TABLET PO SCH (09:26)
[2016-12-03] MEDS: PANTOPRAZOLE 40 MG TABLET PO SCH (10:15)
[2016-12-03] MEDS ORDERED: ceFAZolin 1,000 MG VIAL ONE (10:20)
[2016-12-03] MEDS ORDERED: HEPARIN/NACL 0.9% 2 UNITS/ML 1,000 ML IV ONE (10:26)
[2016-12-03] MEDS ORDERED: HEPARIN LOCK FLUSH 500 UNIT/5 ML SYRINGE IV ONE (10:26)
[2016-12-03] MEDS ORDERED: HYDROmorphone 2 MG/1 ML VIAL ONE (11:08)
[2016-12-03] MEDS ORDERED: TISSUE ADHESIVE 1 EACH APPLICATOR TOP ONE (11:29)
[2016-12-03] MEDS: VANCOMYCIN INJ 1,000 MG in SODIUM CHLORIDE 0.9% 250 ML IV SCH (12:33)
--- NOTE | 2016-12-03 12:47 | Post Interventional Procedure ---
Pre-op diagnosis: mediport catheter dysfunction Post-op diagnosis: same Procedure: 1. removal of the indwelling left subclavian mediport 2. placement of a new bard power port utilizing a new IJ stick and the existing subcutaneous pocket. Contrast: none Flouroscopy: 0.4 min Radiologist: Marvin Garber Anesthesia: local, conscious sedation Medications: 1 mg IV dilaudid Total Sedation Time: 23 mins Specimens: none sent Estimated blood loss: none Complications: none Condition: stable Description/Findings: pinch off of the left subclavian port catheter was again noted on the preprocedure images The indwelling port was dissected free from the subcutaneous tissues. The port pocket was irrigated with copious amounts of normal saline mixed with 1 g Ancef. The port and catheter were removed in their entirety. Subsequently, the left internal jugular vein was visualized and accessed with a needle. A wire was passed into the inferior vena cava. A peel-away sheath was placed and the new Mediport catheter was tunneled through the subcutis tissues to the jugular puncture site. Catheter was cut to 21 cm total length and passed through the peel-away sheath. The subcutaneous pocket was closed with interrupted 3-0 Vicryl deep sutures. The superficial skin was approximated with skin glue and Steri-Strips. The jugular puncture site was closed with skin glue and Steri-Strips. Sterile dressings were applied. The port was left accessed with a Waggoner needle and aspirates and flushes as expected. Patient tolerated the procedure well. Assessment and Plan - Time spent with patient Time spent with patient: Less than 30 minutes (1) Port catheter in place Problem details: port does not aspirate catheter narrowing noted at the clavical - high risk for pinch off and catheter breakage Status: Acute Assessment and plan: will remove port and replace as a left IJ approach port while utilizing the same subcutaneous pocket to reduce risk post procedure: new port in place and functioning appropriately old port and catheter removed without catheter breakage Current Visit: Yes
[2016-12-03] MEDS ORDERED: HEPARIN LOCK FLUSH 500 UNIT/5 ML SYRINGE IV PRN (12:53)
[2016-12-03 14:59] VITALS: BP 147/82
--- NOTE | 2016-12-03 15:30 | Interventional Radiology Rpt ---
IR fluoro guide cv cath, US guide vascular access, IR remove T CVA WOP, IR cvc insrt tunnel w prt/professional housing consultant 1. Port Removal / Explant 2. Left chest Mediport placement (new port placement) Clinical Information: 46-year-old female with colorectal cancer and bilateral ureteral obstruction. Patient recently had Mediport placed at an outside facility. This is a subclavian port and the port functioned has diminished. Imaging demonstrates the port catheter to be severely narrowed/crimped/kinked as it passes below the clavicle. The port no longer aspirates but will flush. There is risk of potential syndrome and portacatheter embolization. Patient and referring physician request for revision and replacement for ongoing chemotherapy needs. Physician[s]: Dr. Garber Procedure: The patient was advised of the benefits, risks, and alternatives of the procedure and informed consent was obtained. A time out was performed with verification of the patient's name, MRN, site of procedure, and type of procedure to be performed. The patient was positioned in the supine position on the angiographic table. The site was prepped and draped in the usual sterile fashion. Moderate conscious sedation was administered throughout the procedure for 25 minutes, during which an independent trained observer monitored the patient including hemodynamic and clinical status. A perinatology physician radiograph reveals a left subclavian vein port. The soft tissues overlying the port were anesthetized with lidocaine. An incision was made over the port using a 15 blade scalpel in the location of the prior incision. The catheter was then freed with blunt dissection and extracted. Pressure was applied to obtain hemostasis. The port was then freed with blunt dissection and subsequently removed. There were no signs of infection. Fluoroscopic visualization was utilized to confirm the entirety of the Mediport catheter was appropriately removed. After hemostasis was achieved, the subcutaneous pocket was irrigated with copious amounts of saline previously mixed with 1 g of Ancef. At this point, attention was then turned toward obtaining new internal jugular vein access above the clavicle. The anticipated puncture site overlying the internal jugular vein was anesthetized with lidocaine. The left internal jugular vein was accessed using a 19-gauge singlewall needle via a lateral approach. A 025 J-wire was advanced into the superior vena cava, the needle was removed and a peel-away sheath was placed. A tunneler was then used to pass the catheter from the pocket to the neck puncture site. Again, the subcutaneous venous pocket was irrigated with copious amounts of Ancef. An 8 Afghan Bard Powerport was then positioned in the pocket. The catheter was then measured and cut. The port catheter was passed through the peel-away sheath into the internal jugular vein, and the peel-away sheath was removed. The port was then accessed with a Waggoner needle. The port flushes and aspirates easily. The puncture site in the neck was closed with skin glue and Steri-Strips. The chest wall incision was then closed with 3-0 Vicryl sutures and skin glue/Steri-Strips. A sterile dressing was then applied. The port was left accessed with a Waggoner needle. The site was cleansed and covered with a sterile dressing. The patient tolerated the procedure well and was returned to the PRU in stable condition. EBL: < 5 mL. Complications: None. Conclusions: 1. Successful explant of a left subclavian vein port. 2. No signs of infection. 3. Successful placement of an 8 Afghan Bard Powerport via the left internal jugular vein. The port is ready for immediate use. PROCEDURE INTERPRETED AT [facility] DEPARTMENT OF RADIOLOGY Final Report Signed by: Marvin Garber
== END 2016-12-03 15:20 | disposition home or self-care (01) | DRG 951 ==
LOC: EDBD → EDUNIT# → N.EDINP 12:03 → N.ED 12:03 → N.EDINP 16:36 → N.4E 16:50
PROVIDERS: ADMIT Specialist; ATTEND Specialist

== ENCOUNTER 2017-01-06 12:57 | Inpatient (IN) ==
[2017-01-06] MEDS ORDERED: ONDANSETRON 4 MG/2 ML VIAL IV STA (13:00)
[2017-01-06] MEDS ORDERED: HYDROmorphone 2 MG/1 ML VIAL IV STA (13:02)
[2017-01-06] MEDS ORDERED: SODIUM CHLORIDE 0.9% 1,000 ML IV STA (13:02)
[2017-01-06] MEDS ORDERED: HYDROmorphone 2 MG/1 ML VIAL ONE (13:28)
[2017-01-06] MEDS ORDERED: ONDANSETRON 4 MG/2 ML VIAL ONE (13:28)
[2017-01-06 14:15] LABS: Basophils % 0.4 % (0.0-0.8); Eosinophils % 0.9 % (0.00-10.9); Hematocrit 35.2 VOL% (35.7-47.0); Hemoglobin 11.9 GM/DL (12.0-16.0); Immature Granulocytes % 0.2 %; Immature Granulocytes Absolute 0.01 #; Lymphocytes # 0.4 10*3/uL (1.4-4.0); Lymphocytes % 7.7 % (21.3-54.2); Mean Corpuscular HGB Conc 33.8 GM/DL (32-36); Mean Corpuscular Hemoglobin 28 PG (27-34); Mean Corpuscular Volume 81.5 FL (87-102); Mean Platelet Volume 8.9 FL (9.6-12.0); Monocytes # 0.6 10*3/uL (0.11-0.8); Monocytes % 13.3 % (1.7-12.7); Neutrophils # 3.5 10*3/uL (1.4-7.4); Neutrophils % 77.5 % (38.7-73.9); Platelet Count 367 T/CUMM (130-400); Red Blood Count 4.32 MC/CUMM (3.8-5.5); Red Cell Distribution Width 17.7 % (9.3-17.3); White Blood Count 4.5 T/CUMM (4-12)
[2017-01-06 14:36] LABS: Alanine Aminotransferase 10 U/L (13-56); Alkaline Phosphatase 187 U/L (45-117); Aspartate Amino Transferase 9 U/L (0-37); Bilirubin,Total < 0.39 MG/DL (0.2-1.0); Blood Urea Nitrogen 58 MG/DL (7-18); Calcium 9.3 MG/DL (8.5-10.1); Glucose 262 MG/DL (74-106); Osmolality,Calculated 281.1 MOS/KG (273-304); Potassium 3.7 MMOL/L (3.5-5.1); Sodium 128 MMOL/L (136-145); Total Protein 8.1 G/DL (6.4-8.3)
[2017-01-06] MEDS ORDERED: MYLANTA/LIDO VISC 2:1 300 ML BOTTLE SWISH/SPIT PRN (17:53)
[2017-01-06] MEDS ORDERED: LOPERAMIDE 2 MG CAPSULE PO PRN (17:53)
[2017-01-06] MEDS ORDERED: MAGNESIUM HYDROXIDE SUSP 30 ML UDCUP PO PRN (17:53)
[2017-01-06] MEDS ORDERED: BENZTROPINE 2 MG/2 ML AMP IV PRN (17:53)
[2017-01-06] MEDS ORDERED: chlorproMAZINE 25 MG TABLET PO PRN (17:53)
[2017-01-06] MEDS ORDERED: MYLANTA/LIDO VISC 2:1 300 ML BOTTLE SWISH/SWAL PRN (17:53)
[2017-01-06] MEDS ORDERED: ACETAMINOPHEN 325 MG TABLET PO PRN (17:53)
[2017-01-06] MEDS ORDERED: TEMAZEPAM 7.5 MG CAPSULE PO PRN (17:53)
[2017-01-06] MEDS ORDERED: chlorproMAZINE INJ 50 MG in SODIUM CHLORIDE 0.9% 100 ML IV PRN (17:53)
[2017-01-06] MEDS ORDERED: LACTULOSE 20 GM/30 ML UDCUP PO PRN (17:53)
[2017-01-06] MEDS ORDERED: traMADol 50 MG TABLET PO PRN (17:53)
[2017-01-06] MEDS ORDERED: diphenhydrAMINE CAP 25 MG CAPSULE PO PRN (17:53)
[2017-01-06] MEDS ORDERED: guaiFENesin 200 MG/10 ML UDCUP PO PRN (17:53)
[2017-01-06] MEDS ORDERED: ALPRAZolam 0.25 MG TABLET PO PRN (17:53)
[2017-01-06] MEDS ORDERED: chlorproMAZINE INJ 25 MG in SODIUM CHLORIDE 0.9% 100 ML IV PRN (17:53)
[2017-01-06] MEDS: HYDROmorphone 2 MG/1 ML VIAL IV PRN ×2 (18:25→22:17)
[2017-01-06] MEDS: SODIUM CHLORIDE 0.9% 1,000 ML IV SCH (18:26)
[2017-01-06] MEDS: ONDANSETRON 4 MG/2 ML VIAL IV PRN (18:26)
[2017-01-06 18:59] LABS: Basophils % 0.7 % (0.0-0.8); Eosinophils # 0.1 10*3/uL (0.0-0.87); Hematocrit 30.9 VOL% (35.7-47.0); Hemoglobin 10.7 GM/DL (12.0-16.0); Immature Granulocytes % 0.5 %; Immature Granulocytes Absolute 0.02 #; Lymphocytes # 0.4 10*3/uL (1.4-4.0); Lymphocytes % 9.5 % (21.3-54.2); Mean Corpuscular HGB Conc 34.6 GM/DL (32-36); Mean Corpuscular Hemoglobin 29 PG (27-34); Mean Corpuscular Volume 82.8 FL (87-102); Mean Platelet Volume 8.4 FL (9.6-12.0); Monocytes # 0.8 10*3/uL (0.11-0.8); Monocytes % 19.3 % (1.7-12.7); Neutrophils # 2.9 10*3/uL (1.4-7.4); Platelet Count 322 T/CUMM (130-400); Red Blood Count 3.73 MC/CUMM (3.8-5.5); Red Cell Distribution Width 17.8 % (9.3-17.3); White Blood Count 4.3 T/CUMM (4-12)
[2017-01-06 19:28] LABS: Alanine Aminotransferase 9 U/L (13-56); Albumin 2.7 G/DL (3.4-5.0); Alkaline Phosphatase 161 U/L (45-117); Aspartate Amino Transferase 9 U/L (0-37); Bilirubin,Total < 0.39 MG/DL (0.2-1.0); Blood Urea Nitrogen 54 MG/DL (7-18); Calcium 8.2 MG/DL (8.5-10.1); Glucose 160 MG/DL (74-106); Magnesium 1.5 MG/DL (1.8-2.4); Osmolality,Calculated 279.7 MOS/KG (273-304); Potassium 3.5 MMOL/L (3.5-5.1); Sodium 131 MMOL/L (136-145); Total Protein 7.2 G/DL (6.4-8.3)
[2017-01-06 19:35] LABS: Eosinophils 3 % (0-10); Lymphocytes 9 % (20-55); Platelet Estimate Adequate; Poikilocytosis 1+; Segmented Neutrophils 75 % (50-85); Total Cells Counted 100
[2017-01-06 19:36] LABS: Burr Cells Slight; Helmet Cells Slight; Ovalocytes Few; Polychromasia Slight
[2017-01-06] MEDS: PROMETHAZINE INJ 25 MG in SODIUM CHLORIDE 0.9% 50 ML IV PRN (22:41)
[2017-01-07] MEDS: SODIUM CHLORIDE 0.9% 1,000 ML IV SCH ×4 (01:28→14:49)
[2017-01-07 07:14] LABS: Apearance,Urine CLOUDY (Clear); Bacteria,Urine Few /HPF (Few); Bilirubin,Urine Negative (Negative); Blood, Urine Moderate mg/dL (Negative); Glucose,Urine (UA) 50 mg/dL (Negative); Ketones,Urine Negative (Negative); Mucus,Urine Occasional /LPF (Occasional); Nitrite,Urine Negative (Negative); Protein,Urine 100 MG/DL; RBC,Urine 30 /HPF (0-4); Squamous Epithelial Cell,Urine Occasional /HPF (0-10); Urine Color Yellow (Yellow); Urine Specific Gravity 1.016 (1.001-1.035); Urine Urobilinogen < 2.0 EU/DL (0.2-1.0); WBC,Urine 436 /HPF (0-6)
[2017-01-07 08:22] LABS: Basophils % 0.5 % (0.0-0.8); Eosinophils # 0.2 10*3/uL (0.0-0.87); Eosinophils % 4.1 % (0.00-10.9); Hematocrit 30.4 VOL% (35.7-47.0); Hemoglobin 10.2 GM/DL (12.0-16.0); Immature Granulocytes % 0.9 %; Immature Granulocytes Absolute 0.04 #; Lymphocytes # 0.4 10*3/uL (1.4-4.0); Lymphocytes % 9.2 % (21.3-54.2); Mean Corpuscular HGB Conc 33.6 GM/DL (32-36); Mean Corpuscular Hemoglobin 28 PG (27-34); Mean Corpuscular Volume 83.5 FL (87-102); Monocytes # 0.7 10*3/uL (0.11-0.8); Monocytes % 16.2 % (1.7-12.7); Neutrophils % 69.1 % (38.7-73.9); Platelet Count 322 T/CUMM (130-400); Red Blood Count 3.64 MC/CUMM (3.8-5.5); Red Cell Distribution Width 18.1 % (9.3-17.3); White Blood Count 4.4 T/CUMM (4-12)
[2017-01-07] MEDS: HYDROmorphone 2 MG/1 ML VIAL IM PRN ×3 (08:38→17:44)
[2017-01-07] MEDS: PIPERACILLIN/TAZOBACTAM 3,375 MG in SODIUM CHLORIDE 0.9% 100 ML IV SCH ×2 (08:39→20:13)
[2017-01-07 08:47] LABS: Calcium 8.3 MG/DL (8.5-10.1); Magnesium 1.5 MG/DL (1.8-2.4); Osmolality,Calculated 283.2 MOS/KG (273-304); Potassium 3.8 MMOL/L (3.5-5.1)
[2017-01-07] MEDS ORDERED: SKIN HEALING OINT (AQUAPHOR) 50 GM TUBE TOP SCH (14:30)
[2017-01-07] MEDS: ONDANSETRON 4 MG/2 ML VIAL IV PRN (23:27)
[2017-01-08] MEDS: HYDROmorphone 2 MG/1 ML VIAL IM PRN ×2 (02:54→10:24)
[2017-01-08] MEDS: SODIUM CHLORIDE 0.9% 1,000 ML IV SCH (02:56)
[2017-01-08] MEDS: LOPERAMIDE 2 MG CAPSULE PO PRN (06:12)
[2017-01-08 06:51] LABS: Basophils % 0.4 % (0.0-0.8); Eosinophils # 0.4 10*3/uL (0.0-0.87); Eosinophils % 7.7 % (0.00-10.9); Hematocrit 29.4 VOL% (35.7-47.0); Hemoglobin 9.8 GM/DL (12.0-16.0); Immature Granulocytes % 0.9 %; Immature Granulocytes Absolute 0.05 #; Lymphocytes # 0.5 10*3/uL (1.4-4.0); Lymphocytes % 8.4 % (21.3-54.2); Mean Corpuscular HGB Conc 33.3 GM/DL (32-36); Mean Corpuscular Hemoglobin 28 PG (27-34); Mean Corpuscular Volume 82.8 FL (87-102); Mean Platelet Volume 8.7 FL (9.6-12.0); Monocytes # 0.8 10*3/uL (0.11-0.8); Monocytes % 15.1 % (1.7-12.7); Neutrophils # 3.7 10*3/uL (1.4-7.4); Neutrophils % 67.5 % (38.7-73.9); Platelet Count 299 T/CUMM (130-400); Red Blood Count 3.55 MC/CUMM (3.8-5.5); White Blood Count 5.5 T/CUMM (4-12)
[2017-01-08 07:21] LABS: Magnesium 1.4 MG/DL (1.8-2.4); Osmolality,Calculated 281.2 MOS/KG (273-304)
[2017-01-08 07:24] LABS: % Iron Saturation 22.1 % (18-50); Ferritin 173.5 ng/ml (8-252)
[2017-01-08 07:25] LABS: Eosinophils 1 % (0-10); Hypochromasia 1+; Lymphocytes 6 % (20-55); Macrocytosis 1+; Microcytosis 1+; Platelet Estimate Adequate; Segmented Neutrophils 78 % (50-85); Total Cells Counted 100
[2017-01-08] MEDS ORDERED: VANCOMYCIN INJ 1,000 MG in SODIUM CHLORIDE 0.9% 250 ML IV ONE (07:55)
[2017-01-08] MEDS ORDERED: MAGNESIUM SULF RIDER 4 GM in PREMIX 1 EACH IV ONE (08:01)
[2017-01-08] MEDS: ONDANSETRON 4 MG/2 ML VIAL IV PRN ×2 (09:07→15:00)
[2017-01-08] MEDS: DEXT 5% NACL 0.45% KCL 20 MEQ 20 MEQ/1,000 ML BAG IV SCH ×2 (09:07→18:29)
[2017-01-08] MEDS: PIPERACILLIN/TAZOBACTAM 3,375 MG in SODIUM CHLORIDE 0.9% 100 ML IV SCH (14:31)
[2017-01-08] MEDS: HYDROmorphone 2 MG/1 ML VIAL IV PRN ×2 (17:46→22:38)
[2017-01-08] MEDS: PROMETHAZINE INJ 25 MG in SODIUM CHLORIDE 0.9% 50 ML IV PRN (22:41)
[2017-01-09] MEDS: PIPERACILLIN/TAZOBACTAM 3,375 MG in SODIUM CHLORIDE 0.9% 100 ML IV SCH ×2 (01:58→15:21)
[2017-01-09 05:23] LABS: Basophils % 0.5 % (0.0-0.8); Eosinophils # 0.6 10*3/uL (0.0-0.87); Eosinophils % 10.7 % (0.00-10.9); Hematocrit 29.8 VOL% (35.7-47.0); Hemoglobin 10.4 GM/DL (12.0-16.0); Immature Granulocytes % 0.5 %; Immature Granulocytes Absolute 0.03 #; Lymphocytes # 0.5 10*3/uL (1.4-4.0); Lymphocytes % 8.3 % (21.3-54.2); Mean Corpuscular HGB Conc 34.9 GM/DL (32-36); Mean Corpuscular Hemoglobin 28 PG (27-34); Mean Corpuscular Volume 81.2 FL (87-102); Mean Platelet Volume 8.9 FL (9.6-12.0); Monocytes # 0.8 10*3/uL (0.11-0.8); Monocytes % 14.1 % (1.7-12.7); Neutrophils # 3.9 10*3/uL (1.4-7.4); Neutrophils % 65.9 % (38.7-73.9); Platelet Count 307 T/CUMM (130-400); Red Blood Count 3.67 MC/CUMM (3.8-5.5); Red Cell Distribution Width 17.4 % (9.3-17.3); White Blood Count 5.9 T/CUMM (4-12)
[2017-01-09 05:52] LABS: Albumin 2.3 G/DL (3.4-5.0); Bilirubin,Total 0.7 MG/DL (0.2-1.0); Calcium 8.7 MG/DL (8.5-10.1); Magnesium 2.6 MG/DL (1.8-2.4); Osmolality,Calculated 268.7 MOS/KG (273-304); Potassium 2.8 MMOL/L (3.5-5.1); Total Protein 6.2 G/DL (6.4-8.3)
[2017-01-09] MEDS: HYDROmorphone 2 MG/1 ML VIAL IV PRN ×4 (06:19→23:44)
[2017-01-09 07:28] LABS: Band Neutrophils 25 % (0-10); Lymphocytes 13 % (20-55); Nucleated Red Blood Cells 4 (0-5); Segmented Neutrophils 57 % (50-85); Total Cells Counted 100
[2017-01-09 07:29] LABS: Anisocytosis 1+; Poikilocytosis 1+
[2017-01-09] MEDS ORDERED: ONDANSETRON ODT 4 MG TABLET PO PRN (08:04)
[2017-01-09] MEDS ORDERED: oxyCODONE/ACETAMINOPHEN 5-325 MG TABLET PO PRN (08:04)
[2017-01-09] MEDS: amLODIPine 10 MG TABLET PO SCH (09:38)
[2017-01-09] MEDS: MORPHINE ER 30 MG TABLET PO SCH ×3 (09:38→21:08)
[2017-01-09] MEDS: metFORMIN 500 MG TABLET PO SCH ×2 (09:38→21:08)
[2017-01-09] MEDS: ALUMINUM/MAGNES/SIMETH MAX STR 30 ML UDCUP PO PRN ×2 (09:39→23:44)
[2017-01-09] MEDS: FLUCONAZOLE INJ 100 MG in IV BAG 1 EACH IV SCH (09:40)
[2017-01-09] MEDS: DEXT 5% NACL 0.45% KCL 40 MEQ 40 MEQ/1,000 ML BAG IV SCH (09:40)
[2017-01-09] MEDS: ONDANSETRON 4 MG/2 ML VIAL IV PRN ×2 (11:56→21:09)
[2017-01-09] MEDS ORDERED: PROMETHAZINE 25 MG/1 ML VIAL ONE (23:53)
[2017-01-09] MEDS: PROMETHAZINE INJ 25 MG in SODIUM CHLORIDE 0.9% 50 ML IV PRN (23:59)
[2017-01-10] MEDS: DEXT 5% NACL 0.45% KCL 40 MEQ 40 MEQ/1,000 ML BAG IV SCH ×4 (00:43→23:07)
[2017-01-10] MEDS: PIPERACILLIN/TAZOBACTAM 3,375 MG in SODIUM CHLORIDE 0.9% 100 ML IV SCH (02:01)
[2017-01-10] MEDS: PROMETHAZINE INJ 25 MG in SODIUM CHLORIDE 0.9% 50 ML IV PRN (06:22)
[2017-01-10] MEDS ORDERED: POTASSIUM CHLORIDE 20 MEQ TABLET PO ONE (08:17)
[2017-01-10] MEDS: ONDANSETRON 4 MG/2 ML VIAL IV SCH ×3 (08:35→20:09)
[2017-01-10 08:49] LABS: Calcium 8.4 MG/DL (8.5-10.1); Magnesium 2.1 MG/DL (1.8-2.4); Osmolality,Calculated 262.9 MOS/KG (273-304); Potassium 3.6 MMOL/L (3.5-5.1)
[2017-01-10] MEDS: amLODIPine 10 MG TABLET PO SCH (08:52)
[2017-01-10] MEDS: MORPHINE ER 30 MG TABLET PO SCH ×3 (08:52→21:29)
[2017-01-10] MEDS: FLUCONAZOLE INJ 100 MG in IV BAG 1 EACH IV SCH (08:52)
[2017-01-10] MEDS: cefTRIAXone 1,000 MG in SYRINGE 1 EACH IV SCH (08:52)
[2017-01-10] MEDS: metFORMIN 500 MG TABLET PO SCH ×2 (08:52→21:29)
[2017-01-10] MEDS: LOPERAMIDE 2 MG CAPSULE PO SCH ×3 (08:59→21:30)
[2017-01-10] MEDS: HYDROmorphone 2 MG/1 ML VIAL IV PRN ×2 (14:01→20:10)
[2017-01-11] MEDS: ONDANSETRON 4 MG/2 ML VIAL IV SCH ×4 (02:44→21:09)
[2017-01-11] MEDS: LOPERAMIDE 2 MG CAPSULE PO PRN ×2 (02:45→21:04)
[2017-01-11] MEDS: DEXT 5% NACL 0.45% KCL 40 MEQ 40 MEQ/1,000 ML BAG IV SCH ×3 (02:48→15:14)
[2017-01-11] MEDS: LOPERAMIDE 2 MG CAPSULE PO SCH ×2 (03:43→08:58)
[2017-01-11] MEDS: HYDROmorphone 2 MG/1 ML VIAL IV PRN ×2 (04:33→18:55)
[2017-01-11 06:06] LABS: Basophils % 0.2 % (0.0-0.8); Eosinophils # 0.7 10*3/uL (0.0-0.87); Eosinophils % 7.4 % (0.00-10.9); Hematocrit 27.6 VOL% (35.7-47.0); Hemoglobin 9.3 GM/DL (12.0-16.0); Immature Granulocytes % 0.8 %; Immature Granulocytes Absolute 0.07 #; Lymphocytes # 0.5 10*3/uL (1.4-4.0); Lymphocytes % 5.8 % (21.3-54.2); Mean Corpuscular HGB Conc 33.7 GM/DL (32-36); Mean Corpuscular Hemoglobin 28 PG (27-34); Mean Corpuscular Volume 83.6 FL (87-102); Mean Platelet Volume 8.9 FL (9.6-12.0); Monocytes # 0.7 10*3/uL (0.11-0.8); Monocytes % 8.2 % (1.7-12.7); Neutrophils # 6.9 10*3/uL (1.4-7.4); Neutrophils % 77.6 % (38.7-73.9); Platelet Count 311 T/CUMM (130-400); Red Cell Distribution Width 17.4 % (9.3-17.3); White Blood Count 8.9 T/CUMM (4-12)
[2017-01-11 06:43] LABS: Calcium 8.4 MG/DL (8.5-10.1); Magnesium 1.9 MG/DL (1.8-2.4); Osmolality,Calculated 264.9 MOS/KG (273-304); Potassium 4.8 MMOL/L (3.5-5.1)
[2017-01-11] MEDS ORDERED: APREPITANT 80 MG CAPSULE PO ONE (07:47)
[2017-01-11] MEDS ORDERED: LACTATED RINGERS 1,000 ML IV ONE (07:59)
[2017-01-11] MEDS: cefTRIAXone 1,000 MG in SYRINGE 1 EACH IV SCH (08:57)
[2017-01-11] MEDS: metFORMIN 500 MG TABLET PO SCH ×2 (08:58→20:55)
[2017-01-11] MEDS: amLODIPine 10 MG TABLET PO SCH (08:58)
[2017-01-11] MEDS: MORPHINE ER 30 MG TABLET PO SCH ×3 (08:58→20:55)
[2017-01-11] MEDS ORDERED: FLUCONAZOLE 100 MG TABLET PO SCH (09:00)
[2017-01-11] MEDS ORDERED: FLUCONAZOLE 200 MG TABLET PO SCH (16:57)
[2017-01-12] MEDS: HYDROmorphone 2 MG/1 ML VIAL IV PRN ×3 (00:57→08:48)
[2017-01-12] MEDS: DEXT 5% NACL 0.45% KCL 40 MEQ 40 MEQ/1,000 ML BAG IV SCH (02:40)
[2017-01-12] MEDS: ONDANSETRON 4 MG/2 ML VIAL IV SCH ×2 (03:09→08:44)
[2017-01-12] MEDS ORDERED: SODIUM CHLORIDE 0.9% 1,000 ML IV ONE (07:50)
[2017-01-12] MEDS: metFORMIN 500 MG TABLET PO SCH (08:43)
[2017-01-12] MEDS: amLODIPine 10 MG TABLET PO SCH (08:44)
[2017-01-12] MEDS: cefTRIAXone 1,000 MG in SYRINGE 1 EACH IV SCH (08:44)
[2017-01-12] MEDS: MORPHINE ER 30 MG TABLET PO SCH (08:44)
[2017-01-12] MEDS: SODIUM CHLORIDE 0.9% 1,000 ML IV SCH ×2 (08:44→09:56)
[2017-01-12 09:04] VITALS: BP 142/65
[2017-01-12] MEDS ORDERED: HEPARIN LOCK FLUSH 500 UNIT/5 ML SYRINGE IV ONE (11:21)
[2017-01-12] MEDS ORDERED: HEPARIN LOCK FLUSH 500 UNIT/5 ML SYRINGE IV PRN (11:23)
== END 2017-01-12 11:30 | disposition home or self-care (01) | DRG 460 ==
LOC: EDBD → EDUNIT# → N.ED 12:57 → N.EDINP 16:00 → N.4E 17:32
PROVIDERS: ADMIT Specialist; ATTEND Specialist